=== PATIENT | male | born 1960 | race Caucasian/White ===

== ENCOUNTER 2019-03-10 20:08 | Inpatient (IN) ==
[2019-03-10] MEDS ORDERED: Isovue-370 500 ML BOTTLE IVP ONE (20:30)
[2019-03-10] MEDS ORDERED: 0.9 % Sodium Chloride 1,000 ML IVC ONE (20:31)
[2019-03-10] MEDS ORDERED: *HR* HYDROmorphone (PF) 1 MG/ML SYRINGE IVP ONE (20:31)
--- NOTE | 2019-03-10 20:32 | Emergency Department Note ---
Disposition Clinical Impression: Choledocholithiasis, Cholecystitis Disposition: Admitted As Inpatient Condition: Good Time of Disposition: 23:50 General Adult HPI - General Stated complaint: ABD pain Time Seen by Provider: 03/10/19 20:10 Nursing Notes Reviewed: Yes Vital Signs Reviewed: Yes - History of Present Illness HPI Narrative: 58-year-old male presents emergency department with concern for right upper quadrant abdominal pain as well as right lower quadrant abdominal pain. Patient is brought in by EMS reported as blood pressures were low on the lower side but still within normal limits. Patient reports that he has had some chills and sweatiness. Reported that he had elevated glucose per EMS in the high 400s. Patient reports that he is taking his insulin as prescribed. He denies chest pain, pressure, tightness, he does report sweatiness as well as chills, but no fever, no cough, no sputum production, no abdominal pain, he did have an episode of vomiting. - Related Data Home Medications Medication Instructions Recorded Confirmed Aspirin [Adult Low Dose Aspirin EC] 81 mg PO DAILY 10/26/15 01/23/18 Metoprolol [Lopressor] 12.5 mg PO BID 10/26/15 01/23/18 Nitroglycerin [Nitrostat] 1 tab SL PRN PRN 10/26/15 01/23/18 Albuterol Neb [AccuNeb] 3 ml IH Q8H 12/29/15 01/23/18 Lisinopril [Zestril] 10 mg PO DAILY 12/29/15 01/23/18 Albuterol Sulfate [Ventolin Hfa] 18 gm IH Q4H PRN 01/23/18 01/23/18 BuPROPion XL (24 HR) [Wellbutrin 300 mg PO DAILY 01/23/18 01/23/18 XL] Fluticasone/Vilanterol [Breo 1 each IH DAILY 01/23/18 01/23/18 Ellipta 200-25 Mcg INH] Mometasone/Formoterol [Dulera 200 13 gm IH PRN PRN 01/23/18 01/23/18 Mcg/5 Mcg Inhaler] Montelukast [Singulair] 10 mg PO HS 01/23/18 01/23/18 Pantoprazole Sodium [Protonix] 40 mg PO DAILY 01/23/18 01/23/18 Umeclidinium [place] [Incruse 62.5 mcg IH DAILY 01/23/18 01/23/18 Ellipta] hydroCHLOROthiazide 25 mg PO DAILY 01/23/18 01/23/18 [Hydrochlorothiazide] Previous Rx's Medication Instructions Recorded Ondansetron ODT [Zofran ODT] 4 mg SL Q6HR PRN #10 tab.rapdis 03/09/19 OxyCODONE/APAP 5/325 [Percocet 1 each PO Q6HR PRN 2 Days #8 tablet 03/09/19 5/325 MG] Allergies Allergy/AdvReac Type Severity Reaction Status Date / Time No Known Allergies Allergy Verified 01/23/18 13:47 All systems ED: reviewed and negative except as stated. Review of Systems: As Per HPI Constitutional: Denies: fever Cardiovascular: Denies: chest pain Respiratory: Denies: cough, dyspnea Gastrointestinal: Reports: nausea, vomiting. Denies: abdominal pain Genitourinary: Denies: dysuria Past Medical History - Past Medical History Attestation: Yes The following information was validated with the patient. Medical history: Reports: COPD, hyperlipidemia, hypertension Surgical history: Reports: other Psychiatric history: Reports: no psych history - Social History Smoking Status: Current every day smoker Smokeless Tobacco Status: No Alcohol use: Reports: none Drug use: Reports: none Physical Exam - General Limitations: no limitations General appearance: alert, other (Patient appears sweaty) - Head Head exam: normocephalic - Eye Eye exam: Present: EOMI - ENT ENT exam: mucous membranes dry - Neck Neck exam: Present: trachea midline - Chest Chest inspection: Present: symmetric chest wall rise - Respiratory Respiratory exam: Present: normal lung sounds bilaterally. Absent: respiratory distress, accessory muscle use - Cardiovascular Cardiovascular exam: Present: normal rhythm, tachycardia, normal heart sounds - Abdominal Exam Abdominal exam: Present: soft, Non-Tender. Absent: distention, guarding, rebound, rigidity - Extremities Exam Extremities exam: Present: normal capillary refill - Back Exam Back exam: Present: full ROM - Neurological Exam Neurological exam: Present: alert, oriented X3 - Psychiatric Psychiatric exam: Present: normal affect, normal mood - Skin Skin exam: Present: warm, dry, intact, normal color. Absent: rash Course Vital Signs Temperature 98.5 F 03/10/19 20:29 Pulse Rate 87 03/10/19 20:29 Respiratory Rate 18 03/10/19 20:29 Blood Pressure 99/71 03/10/19 20:29 O2 Sat by Pulse Oximetry 97 03/10/19 20:29 Temperature 97.9 F 03/11/19 00:33 Pulse Rate 100 03/11/19 00:33 Respiratory Rate 20 03/11/19 00:33 Blood Pressure 118/83 03/11/19 00:33 O2 Sat by Pulse Oximetry 94 03/11/19 00:33 Oxygen Delivery Oxygen Delivery Room Air Medical Decision Making - MDM Narrative Medical decision making narrative: 58-year-old male with history of gallstones presents emergency department with right upper and right lower quadrant abdominal pain. Patient currently has blood pressures are soft. Given fluids. Obtain CT scan abdomen pelvis which revealed evidence of possible cholecystitis. Spoke with Dr. Barrera stated that there could be some concern for possible choledocholithiasis with dilated common bile duct on yesterday's gallbladder ultrasound. Patient was given Zosyn. Spoke with Dr. Sharma who spoke with our GI coverage. He requested MRCP. Patient intermittently stable in any distress time of admission. Chest X-Ray 03/10/19 20:23 IMPRESSION: Stable chest x-ray status post left upper lobectomy. No acute disease. D/ / Jay Resendez MD / Jay Resendez MD Interpreting Provider: Jay Resendez MD Abdomen/Pelvis CT 03/10/19 20:30 IMPRESSION: 1. Evidence for cholesterol gallstones with inflammatory changes surrounding the gallbladder suggesting acute cholecystitis. 2. Airspace opacification in the right lower lobe could represent atelectatic changes or pneumonia 3. Colonic diverticulosis without evidence for diverticulitis 4. No obstructive uropathy D/ / Jerardo Dickerson MD / Jerardo Dickerson MD Interpreting Provider: Jerardo Dickerson MD - Lab Data Result diagrams: 03/10/19 20:43 03/10/19 20:43 Lab Results 03/10/19 03/10/19 03/10/19 Range/Units 20:43 20:43 20:43 WBC 21.1 H D (4.3-11.1) K/mcL RBC 5.70 H (4.19-5.50) M/mcL Hgb 16.2 (12.9-16.9) g/dL Hct 50.0 (37.5-50.1) % MCV 87.7 (83.0-100.0) fL MCH 28.4 (28.0-33.3) pg MCHC 32.4 (31.6-35.5) g/dL RDW 14.5 (11.5-14.5) % Plt Count 236 (140-400) K/mcL MPV 11.1 (9.4-12.4) fL Immature Gran % 1.0 (0-4) % Seg Neutrophils % 86.5 % Lymphocytes % 4.9 % Monocytes % 7.4 % Eosinophils % 0.0 % Basophils % 0.2 % Neutrophils # 18.3 H (1.6-8.9) K/mcL Lymphocytes # 1.0 (0.6-4.6) K/mcL Monocytes # 1.6 H (0.0-1.3) K/mcL Eosinophils # 0.0 (0.0-0.6) K/mcL Basophils # 0.0 (0.0-0.2) K/mcL PT (9.4-12.1) Seconds INR Sodium 135 L (136-145) mEq/L Potassium 3.9 (3.5-5.1) mEq/L Chloride 100 (98-107) mEq/L Carbon Dioxide 25 (23-29) mEq/L BUN 13 (6-20) mg/dL Creatinine 1.17 (0.70-1.30) mg/dL Est GFR ( Amer) > 60 (> 60) Est GFR (Non-Af Amer) > 60 (> 60) BUN/Creatinine Ratio 11 (6-26) Glucose 141 H (70-105) mg/dL Calculated Osmolality 282 (280-300) Lactic Acid (0.5-2.2) mmol/L Calcium 9.0 (8.6-10.3) mg/dL Total Bilirubin 1.6 H (0.3-1.0) mg/dL AST 14 (13-39) Units/L ALT 16 (7-52) Units/L Alkaline Phosphatase 89 (34-104) Units/L Troponin I < 0.03 (< 0.04) ng/mL B-Natriuretic Peptide 166 H (Less than 100) pg/mL Serum Total Protein 6.7 (6.4-8.9) g/dL Albumin 3.8 (3.5-5.7) g/dL Globulin 2.9 (2.4-3.5) g/dL Albumin/Globulin Ratio 1.3 (1.1-2.2) Lipase 13 (11-82) Units/L Urine Color (Yellow) Urine Clarity (Clear) Urine pH (5.0-8.0) pH Units Ur Specific [place] (1.010-1.025) Urine Protein (Neg-Trace) mg/dL Urine Glucose (UA) (Normal) mg/dL Urine Ketones (Negative) mg/dL Urine Blood (Negative) Urine Nitrite (Negative) Urine Bilirubin (Negative) Urine Urobilinogen (Normal) mg/dL Ur Leukocyte Esterase (Negative) Urine Microscopic RBC (0-3) per hpf Urine Microscopic WBC (0-3) per hpf Ur Squamous Epith Cells (None-Few) per lpf Urine Bacteria (None-Few) per hpf Hyaline Casts (None-Few) per lpf Ur Culture Indicated? (NO) 03/10/19 03/10/19 03/10/19 Range/Units 20:43 20:43 20:57 WBC (4.3-11.1) K/mcL RBC (4.19-5.50) M/mcL Hgb (12.9-16.9) g/dL Hct (37.5-50.1) % MCV (83.0-100.0) fL MCH (28.0-33.3) pg MCHC (31.6-35.5) g/dL RDW (11.5-14.5) % Plt Count (140-400) K/mcL MPV (9.4-12.4) fL Immature Gran % (0-4) % Seg Neutrophils % % Lymphocytes % % Monocytes % % Eosinophils % % Basophils % % Neutrophils # (1.6-8.9) K/mcL Lymphocytes # (0.6-4.6) K/mcL Monocytes # (0.0-1.3) K/mcL Eosinophils # (0.0-0.6) K/mcL Basophils # (0.0-0.2) K/mcL PT 14.4 H (9.4-12.1) Seconds INR 1.3 Sodium (136-145) mEq/L Potassium (3.5-5.1) mEq/L Chloride (98-107) mEq/L Carbon Dioxide (23-29) mEq/L BUN (6-20) mg/dL Creatinine (0.70-1.30) mg/dL Est GFR ( Amer) (> 60) Est GFR (Non-Af Amer) (> 60) BUN/Creatinine Ratio (6-26) Glucose (70-105) mg/dL Calculated Osmolality (280-300) Lactic Acid 2.1 (0.5-2.2) mmol/L Calcium (8.6-10.3) mg/dL Total Bilirubin (0.3-1.0) mg/dL AST (13-39) Units/L ALT (7-52) Units/L Alkaline Phosphatase (34-104) Units/L Troponin I (< 0.04) ng/mL B-Natriuretic Peptide (Less than 100) pg/mL Serum Total Protein (6.4-8.9) g/dL Albumin (3.5-5.7) g/dL Globulin (2.4-3.5) g/dL Albumin/Globulin Ratio (1.1-2.2) Lipase (11-82) Units/L Urine Color [place] A (Yellow) Urine Clarity Clear (Clear) Urine pH 5.0 (5.0-8.0) pH Units Ur Specific [place] > 1.030 H (1.010-1.025) Urine Protein 100 H (Neg-Trace) mg/dL Urine Glucose (UA) Normal (Normal) mg/dL Urine Ketones Trace H (Negative) mg/dL Urine Blood Negative (Negative) Urine Nitrite Negative (Negative) Urine Bilirubin Small H (Negative) Urine Urobilinogen Normal (Normal) mg/dL Ur Leukocyte Esterase Small H (Negative) Urine Microscopic RBC 5-15 H (0-3) per hpf Urine Microscopic WBC 5-15 H (0-3) per hpf Ur Squamous Epith Cells Many H (None-Few) per lpf Urine Bacteria None Seen (None-Few) per hpf Hyaline Casts Few (None-Few) per lpf Ur Culture Indicated? YES A (NO) - EKG Data EKG #1 EKG attestation: Yes I reviewed and interpreted this EKG. EKG results narrative: 20:20 Heart rate 85 bpm, NE interval 130 ms, QRS duration 87, QT 351 ms, normal axis. Sinus rhythm with no ischemic ST changes.
[2019-03-10] MEDS ORDERED: Ondansetron 4 MG/2 ML VIAL IVP ONE (20:33)
[2019-03-10 20:59] LABS: Basophils % 0.2 %; Hemoglobin 16.2 g/dL (12.9-16.9); Lymphocytes % 4.9 %; Mean Corpuscular HGB Conc 32.4 g/dL (31.6-35.5); Mean Corpuscular Hemoglobin 28.4 pg (28.0-33.3); Mean Corpuscular Volume 87.7 fL (83.0-100.0); Mean Platelet Volume 11.1 fL (9.4-12.4); Monocytes # 1.6 K/mcL (0.0-1.3); Monocytes % 7.4 %; Platelet Count 236 K/mcL (140-400); Red Cell Distribution Width 14.5 % (11.5-14.5); Segmented Neutrophils % 86.5 %
[2019-03-10 21:00] LABS: Neutrophils # 18.3 K/mcL (1.6-8.9); White Blood Count 21.1 K/mcL (4.3-11.1)
[2019-03-10 21:25] LABS: Alanine Aminotransferase 16 Units/L (7-52); Albumin 3.8 g/dL (3.5-5.7); Albumin/Globulin Ratio 1.3 (1.1-2.2); Alkaline Phosphatase 89 Units/L (34-104); Aspartate Amino Transferase 14 Units/L (13-39); BUN/Creatinine Ratio 11 (6-26); Bilirubin,Total 1.6 mg/dL (0.3-1.0); Blood Urea Nitrogen 13 mg/dL (6-20); Carbon Dioxide 25 mEq/L (23-29); Chloride 100 mEq/L (98-107); Globulin 2.9 g/dL (2.4-3.5); Glucose 141 mg/dL (70-105); Lipase 13 Units/L (11-82); Osmolality,Calculated 282 (280-300); Potassium 3.9 mEq/L (3.5-5.1); Sodium 135 mEq/L (136-145); Total Protein 6.7 g/dL (6.4-8.9); Troponin I < 0.03 ng/mL (< 0.04); eGFR For African Americans > 60 (> 60); eGFR For Non-African Americans > 60 (> 60)
[2019-03-10 21:30] LABS: Bilirubin,Urine Small (Negative); Blood,Urine Negative (Negative); Clarity,Urine Clear (Clear); Color,Urine Orange (Yellow); Glucose,Urine (UA) Normal (Normal); Ketones,Urine Trace mg/dL (Negative); Leukocyte Esterase,Urine Small (Negative); Nitrite,Urine Negative (Negative); Protein,Urine 100 mg/dL (Neg-Trace); Specific Gravity,Urine > 1.030 (1.010-1.025); Urobilinogen,Urine Normal (Normal)
[2019-03-10 21:34] LABS: Bacteria,Urine None Seen per hpf (None-Few); Squamous Epithelial Cell,Urine Many per lpf (None-Few)
[2019-03-10] MEDS ORDERED: Piperacillin/Tazobactam 3.375 GM in Water for inj. (sterile) 20 ML IVP ONE (21:40)
[2019-03-10 21:56] LABS: Hyaline Casts,Urine Few per lpf (None-Few)
--- NOTE | 2019-03-10 22:27 | Emergency Department Note ---
Disposition Clinical Impression: Choledocholithiasis Disposition: Admitted As Inpatient Condition: Good Referrals: Sonia Bradley MD [Primary Care Provider] - Forms: ED Satisfaction Letter, Work/School Release Time of Disposition: 22:27 General Adult HPI - General Chief complaint: ED General Medical Stated complaint: ABD pain Time Seen by Provider: 03/10/19 20:10 Source: patient Limitations: no limitations - History of Present Illness Pain Scale: 7 - Related Data Home Medications Medication Instructions Recorded Confirmed Aspirin [Adult Low Dose Aspirin EC] 81 mg PO DAILY 10/26/15 01/23/18 Metoprolol [Lopressor] 12.5 mg PO BID 10/26/15 01/23/18 Nitroglycerin [Nitrostat] 1 tab SL PRN PRN 10/26/15 01/23/18 Albuterol Neb [AccuNeb] 3 ml IH Q8H 12/29/15 01/23/18 Lisinopril [Zestril] 10 mg PO DAILY 12/29/15 01/23/18 Albuterol Sulfate [Ventolin Hfa] 18 gm IH Q4H PRN 01/23/18 01/23/18 BuPROPion XL (24 HR) [Wellbutrin 300 mg PO DAILY 01/23/18 01/23/18 XL] Fluticasone/Vilanterol [Breo 1 each IH DAILY 01/23/18 01/23/18 Ellipta 200-25 Mcg INH] Mometasone/Formoterol [Dulera 200 13 gm IH PRN PRN 01/23/18 01/23/18 Mcg/5 Mcg Inhaler] Montelukast [Singulair] 10 mg PO HS 01/23/18 01/23/18 Pantoprazole Sodium [Protonix] 40 mg PO DAILY 01/23/18 01/23/18 Umeclidinium [place] [Incruse 62.5 mcg IH DAILY 01/23/18 01/23/18 Ellipta] hydroCHLOROthiazide 25 mg PO DAILY 01/23/18 01/23/18 [Hydrochlorothiazide] Previous Rx's Medication Instructions Recorded Ondansetron ODT [Zofran ODT] 4 mg SL Q6HR PRN #10 tab.rapdis 03/09/19 OxyCODONE/APAP 5/325 [Percocet 1 each PO Q6HR PRN 2 Days #8 tablet 03/09/19 5/325 MG] Allergies Allergy/AdvReac Type Severity Reaction Status Date / Time No Known Allergies Allergy Verified 01/23/18 13:47 Constitutional: Denies: fever Cardiovascular: Denies: chest pain Respiratory: Denies: cough, dyspnea Gastrointestinal: Reports: nausea, vomiting. Denies: abdominal pain Genitourinary: Denies: dysuria Past Medical History - Past Medical History Medical history: Reports: COPD, hyperlipidemia, hypertension Surgical history: Reports: other Psychiatric history: Reports: no psych history - Social History Smoking Status: Current every day smoker Smokeless Tobacco Status: No Alcohol use: Reports: none Drug use: Reports: none Physical Exam - General Limitations: no limitations General appearance: alert, other (Patient appears sweaty) Course - Consultations Consultation #1: discussed case with Dr. Bruce melo suspects choledecolithiasis and he may need GI consult tomorrow morning for an ERCP. He does necessarily meet emergent surgical intervention at this time. If medicine cannot admit due to limited GI c overage tonight we will need to transfer for him to have a ERCP/MRCP done in the morning and if that study is otherwise negative then a consult to surgery may be more apporpiate. will pass by medicine Time: 22:27 Vital Signs Temperature 98.5 F 03/10/19 20:29 Pulse Rate 87 03/10/19 20:29 Respiratory Rate 18 03/10/19 20:29 Blood Pressure 99/71 03/10/19 20:29 O2 Sat by Pulse Oximetry 97 03/10/19 20:29 Temperature 98.5 F 03/10/19 20:29 Pulse Rate 99 03/10/19 22:17 Respiratory Rate 20 03/10/19 22:17 Blood Pressure 118/88 03/10/19 22:17 O2 Sat by Pulse Oximetry 98 03/10/19 22:17 Oxygen Delivery Oxygen Delivery Room Air Medical Decision Making - Lab Data Result diagrams: 03/10/19 20:43 03/10/19 20:43 Lab Results 03/10/19 03/10/19 03/10/19 Range/Units 20:43 20:43 20:43 WBC 21.1 H D (4.3-11.1) K/mcL RBC 5.70 H (4.19-5.50) M/mcL Hgb 16.2 (12.9-16.9) g/dL Hct 50.0 (37.5-50.1) % MCV 87.7 (83.0-100.0) fL MCH 28.4 (28.0-33.3) pg MCHC 32.4 (31.6-35.5) g/dL RDW 14.5 (11.5-14.5) % Plt Count 236 (140-400) K/mcL MPV 11.1 (9.4-12.4) fL Immature Gran % 1.0 (0-4) % Seg Neutrophils % 86.5 % Lymphocytes % 4.9 % Monocytes % 7.4 % Eosinophils % 0.0 % Basophils % 0.2 % Neutrophils # 18.3 H (1.6-8.9) K/mcL Lymphocytes # 1.0 (0.6-4.6) K/mcL Monocytes # 1.6 H (0.0-1.3) K/mcL Eosinophils # 0.0 (0.0-0.6) K/mcL Basophils # 0.0 (0.0-0.2) K/mcL Sodium 135 L (136-145) mEq/L Potassium 3.9 (3.5-5.1) mEq/L Chloride 100 (98-107) mEq/L Carbon Dioxide 25 (23-29) mEq/L BUN 13 (6-20) mg/dL Creatinine 1.17 (0.70-1.30) mg/dL Est GFR ( Amer) > 60 (> 60) Est GFR (Non-Af Amer) > 60 (> 60) BUN/Creatinine Ratio 11 (6-26) Glucose 141 H (70-105) mg/dL Calculated Osmolality 282 (280-300) Lactic Acid (0.5-2.2) mmol/L Calcium 9.0 (8.6-10.3) mg/dL Total Bilirubin 1.6 H (0.3-1.0) mg/dL AST 14 (13-39) Units/L ALT 16 (7-52) Units/L Alkaline Phosphatase 89 (34-104) Units/L Troponin I < 0.03 (< 0.04) ng/mL B-Natriuretic Peptide 166 H (Less than 100) pg/mL Serum Total Protein 6.7 (6.4-8.9) g/dL Albumin 3.8 (3.5-5.7) g/dL Globulin 2.9 (2.4-3.5) g/dL Albumin/Globulin Ratio 1.3 (1.1-2.2) Lipase 13 (11-82) Units/L Urine Color (Yellow) Urine Clarity (Clear) Urine pH (5.0-8.0) pH Units Ur Specific [place] (1.010-1.025) Urine Protein (Neg-Trace) mg/dL Urine Glucose (UA) (Normal) mg/dL Urine Ketones (Negative) mg/dL Urine Blood (Negative) Urine Nitrite (Negative) Urine Bilirubin (Negative) Urine Urobilinogen (Normal) mg/dL Ur Leukocyte Esterase (Negative) Urine Microscopic RBC (0-3) per hpf Urine Microscopic WBC (0-3) per hpf Ur Squamous Epith Cells (None-Few) per lpf Urine Bacteria (None-Few) per hpf Hyaline Casts (None-Few) per lpf Ur Culture Indicated? (NO) 03/10/19 03/10/19 Range/Units 20:43 20:57 WBC (4.3-11.1) K/mcL RBC (4.19-5.50) M/mcL Hgb (12.9-16.9) g/dL Hct (37.5-50.1) % MCV (83.0-100.0) fL MCH (28.0-33.3) pg MCHC (31.6-35.5) g/dL RDW (11.5-14.5) % Plt Count (140-400) K/mcL MPV (9.4-12.4) fL Immature Gran % (0-4) % Seg Neutrophils % % Lymphocytes % % Monocytes % % Eosinophils % % Basophils % % Neutrophils # (1.6-8.9) K/mcL Lymphocytes # (0.6-4.6) K/mcL Monocytes # (0.0-1.3) K/mcL Eosinophils # (0.0-0.6) K/mcL Basophils # (0.0-0.2) K/mcL Sodium (136-145) mEq/L Potassium (3.5-5.1) mEq/L Chloride (98-107) mEq/L Carbon Dioxide (23-29) mEq/L BUN (6-20) mg/dL Creatinine (0.70-1.30) mg/dL Est GFR ( Amer) (> 60) Est GFR (Non-Af Amer) (> 60) BUN/Creatinine Ratio (6-26) Glucose (70-105) mg/dL Calculated Osmolality (280-300) Lactic Acid 2.1 (0.5-2.2) mmol/L Calcium (8.6-10.3) mg/dL Total Bilirubin (0.3-1.0) mg/dL AST (13-39) Units/L ALT (7-52) Units/L Alkaline Phosphatase (34-104) Units/L Troponin I (< 0.04) ng/mL B-Natriuretic Peptide (Less than 100) pg/mL Serum Total Protein (6.4-8.9) g/dL Albumin (3.5-5.7) g/dL Globulin (2.4-3.5) g/dL Albumin/Globulin Ratio (1.1-2.2) Lipase (11-82) Units/L Urine Color [place] A (Yellow) Urine Clarity Clear (Clear) Urine pH 5.0 (5.0-8.0) pH Units Ur Specific [place] > 1.030 H (1.010-1.025) Urine Protein 100 H (Neg-Trace) mg/dL Urine Glucose (UA) Normal (Normal) mg/dL Urine Ketones Trace H (Negative) mg/dL Urine Blood Negative (Negative) Urine Nitrite Negative (Negative) Urine Bilirubin Small H (Negative) Urine Urobilinogen Normal (Normal) mg/dL Ur Leukocyte Esterase Small H (Negative) Urine Microscopic RBC 5-15 H (0-3) per hpf Urine Microscopic WBC 5-15 H (0-3) per hpf Ur Squamous Epith Cells Many H (None-Few) per lpf Urine Bacteria None Seen (None-Few) per hpf Hyaline Casts Few (None-Few) per lpf Ur Culture Indicated? YES A (NO) Attestation Statement - Attestation Attestation: I reviewed the residents documentation and agree with the residents assessment and plan of care. I have personally had face to face time with the patient. (Brief History, Brief Exam, and MDM) I personally supervised and was present for the gordon/critical portions of the following procedures completed by the resident: (add procedures performed here). 58 year old male presents ot the ED with RUQ pain and states that it has been worsening it appears that he has an elevated WBCof 21 without lactic acidosis and has a dialted common bile duct of 9mm and stones from a previous RUQ US just yesterday. We will discuss case with surgery after ABCT with IV contrst
[2019-03-10 22:47] LABS: INR 1.3; Prothrombin Time 14.4 Seconds (9.4-12.1)
[2019-03-11] MEDS ORDERED: Acetaminophen 325 MG TABLET PO PRN (01:11)
[2019-03-11] MEDS ORDERED: Albuterol 2.5 MG/3 ML NEBULIZER IH PRN ×2 (01:11→18:19)
[2019-03-11] MEDS ORDERED: Naloxone 0.4 MG/ML INJ IVP PRN ×2 (01:11→18:19)
[2019-03-11] MEDS ORDERED: Ondansetron 4 MG/2 ML VIAL IVP PRN ×2 (01:11→18:19)
[2019-03-11] MEDS ORDERED: *HR* HYDROcodone/Acet 5/325 mg TABLET PO PRN (01:11)
[2019-03-11] MEDS ORDERED: 0.9 % Sodium Chloride w KCl 20 MEQ/1,000 ML MLS IVC SCH ×2 (01:15→18:19)
[2019-03-11] MEDS ORDERED: MetroNIDAZOLE 500 MG/100 ML 500 MG/100 ML BAG IVPB SCH (01:17)
[2019-03-11] MEDS ORDERED: *HR* FentaNYL (PF) 100 MCG/2 ML VIAL IVP PRN ×2 (01:20→18:19)
[2019-03-11] MEDS: 0.9 % Sodium Chloride 1,000 ML IVC SCH ×3 (01:47→03:53)
[2019-03-11 03:19] LABS: Basophils % 0.2 %; Hematocrit 48.3 % (37.5-50.1); Hemoglobin 15.3 g/dL (12.9-16.9); Lymphocytes # 1.1 K/mcL (0.6-4.6); Lymphocytes % 5.5 %; Mean Corpuscular HGB Conc 31.7 g/dL (31.6-35.5); Mean Corpuscular Hemoglobin 28.2 pg (28.0-33.3); Mean Corpuscular Volume 89.1 fL (83.0-100.0); Mean Platelet Volume 11.2 fL (9.4-12.4); Monocytes # 1.2 K/mcL (0.0-1.3); Monocytes % 6.1 %; Neutrophils # 17.6 K/mcL (1.6-8.9); Platelet Count 193 K/mcL (140-400); Red Blood Count 5.42 M/mcL (4.19-5.50); Red Cell Distribution Width 14.7 % (11.5-14.5); Segmented Neutrophils % 87.2 %; White Blood Count 20.2 K/mcL (4.3-11.1)
[2019-03-11 03:27] LABS: INR 1.4; Prothrombin Time 15.9 Seconds (9.4-12.1)
[2019-03-11 03:30] LABS: Activated Partial Thrombo Time 34.6 Seconds (26.0-36.0)
[2019-03-11 03:39] LABS: Alanine Aminotransferase 14 Units/L (7-52); Albumin 3.5 g/dL (3.5-5.7); Albumin/Globulin Ratio 1.3 (1.1-2.2); Alkaline Phosphatase 77 Units/L (34-104); Amylase 18 Units/L (29-103); Aspartate Amino Transferase 14 Units/L (13-39); BUN/Creatinine Ratio 12 (6-26); Bilirubin,Direct 0.4 mg/dL (0.0-0.2); Bilirubin,Indirect 0.9 mg/dL (0.0-1.2); Bilirubin,Total 1.3 mg/dL (0.3-1.0); Blood Urea Nitrogen 12 mg/dL (6-20); Calcium 8.4 mg/dL (8.6-10.3); Carbon Dioxide 27 mEq/L (23-29); Chloride 100 mEq/L (98-107); Cholesterol 133 mg/dL (< 200); Globulin 2.7 g/dL (2.4-3.5); Glucose 114 mg/dL (70-105); HDL Cholesterol 44 mg/dL (40-59); LDL Cholesterol,Calculated 68 mg/dL (0-99); Lipase 8 Units/L (11-82); Magnesium 1.6 mg/dL (1.6-2.6); Osmolality,Calculated 281 (280-300); Potassium 3.7 mEq/L (3.5-5.1); Sodium 135 mEq/L (136-145); Total Protein 6.2 g/dL (6.4-8.9); Triglycerides 107 mg/dL (< 150); eGFR For African Americans > 60 (> 60); eGFR For Non-African Americans > 60 (> 60)
[2019-03-11] MEDS: Ipratropium/Albuterol Neb 3 ML IH SCH ×3 (04:05→15:36)
--- NOTE | 2019-03-11 04:33 | Internal Med History&Physical ---
Date of Encounter: 03/11/19 Time of Encounter: 00:30 Internal Medicine - H&P: HPI Chief complaint: abdominal pain Admitted From: Emergency Dept Plans for Post Hospital Care: Home History of present illness: Mr. Agarwal is a 58 year old male who presents to the ER tonight with right upper quadrant abdominal pain, fevers, chills, nausea, and vomiting. Symptoms are identical to those of yesterday when he presented to ER with same symptoms. Ultrasound was performed yesterday which revealed minimal common bile duct di latation and gallbladder sludge. He was sent home with proper follow-up. He returned tonight with worsening symptoms. CT scan was performed which was concerning for cholecystitis. Dr. Barrera was consulted from the ER and will see patient and likely proceed with surgery. However, he recommended GI consult for possible ERCP. Patient was then admitted to hospitalist service. Upon my assessment of the patient, patient confirms above history. He has had gallbladder symptoms off and on for a few years. However, over the last few weeks he has had worsening GI intolerance. Then 2 days ago he developed acute right upper quadrant abdominal pain, fevers, chills, nausea, and vomiting. I reviewed his labs, imaging studies, and his physical exam. I then talked with Dr. Carrasquillo, and he had I have a low suspicion he needs ERCP given his normal LFTs. Nonetheless, we will proceed with MRCP this morning and then possible ERCP if necessary. Past Med Surg Social Fam HX - Past Medical History Attestation: Yes The following information was validated with the patient. Source: patient, old records reviewed Medical history: COPD, hyperlipidemia, hypertension Additional medical history: SMOKER, CHRONIC BRONCITIS Psychiatric history: no psych history - Past Surgical History Surgical History: other Additional surgical history: hernia repain, L lobectomy, cardiac cath - Social History Smoking Status: Current every day smoker Smokeless Tobacco Status: No Alcohol use: none Drug use: none Current living situation: Home, With Family Activity Level: Independent ambulation Recent Out of Country Travel Within the Last 8 Weeks: No - Family History Mother Adopted: No Family Member Ethnicity: Non- Living Status: Hx Family Cardiac Disorders: Yes Hx Family Respiratory Disorders: Yes (Emyphesema) Hx Family Cancer: No Hx Family GI Disorders: Yes (babatunde) Hx Family Endocrine Disorder: No Hx Family Neuromuscular Disorders: No Hx Family Neurologic Disorders: No Hx Family HEENT Disorders: No Hx Family Autoimmune Disorders: No Internal Medicine - H&P: Meds Aspirin [Adult Low Dose Aspirin EC] 81 mg PO DAILY 10/26/15 [History] Metoprolol [Lopressor] 12.5 mg PO BID 10/26/15 [History] Nitroglycerin [Nitrostat] 1 tab SL PRN PRN 10/26/15 [History] Albuterol Neb [AccuNeb] 3 ml IH Q8H 12/29/15 [History] Lisinopril [Zestril] 10 mg PO DAILY 12/29/15 [History] Albuterol Sulfate [Ventolin Hfa] 18 gm IH Q4H PRN 01/23/18 [History] BuPROPion XL (24 HR) [Wellbutrin XL] 300 mg PO DAILY 01/23/18 [History] Fluticasone/Vilanterol [Breo Ellipta 200-25 Mcg INH] 1 each IH DAILY 01/23/18 [History] Mometasone/Formoterol [Dulera 200 Mcg/5 Mcg Inhaler] 13 gm IH PRN PRN 01/23/18 [History] Montelukast [Singulair] 10 mg PO HS 01/23/18 [History] Pantoprazole Sodium [Protonix] 40 mg PO DAILY 01/23/18 [History] Umeclidinium [place] [Incruse Ellipta] 62.5 mcg IH DAILY 01/23/18 [History] hydroCHLOROthiazide [Hydrochlorothiazide] 25 mg PO DAILY 01/23/18 [History] Ondansetron ODT [Zofran ODT] 4 mg SL Q6HR PRN #10 tab.rapdis 03/09/19 [Rx] OxyCODONE/APAP 5/325 [Percocet 5/325 MG] 1 each PO Q6HR PRN 2 Days #8 tablet 03/09/19 [Rx] Allergy/AdvReac Type Severity Reaction Status Date / Time No Known Allergies Allergy Verified 01/23/18 13:47 - Constitutional Constitutional: chills, fever(s), no night sweats - EENT Eyes: no blurry vision, no change in vision Ears: no ear pain, no tinnitus Nose, mouth and throat: no nasal congestion, no sinus pressure, no sore throat - Cardiovascular Cardiovascular ROS IM: no chest pain, no dyspnea, no dyspnea on exertion, no palpitations - Respiratory Respiratory: no cough, no chest congestion, no excessive phlegm production - Gastrointestinal Gastrointestinal: abdominal pain, nausea, vomiting, no diarrhea, no hematemesis, no hematochezia, no melena - Genitourinary Genitourinary ROS male: no dysuria, no flank pain, no hematuria - Musculoskeletal Musculoskeletal ROS IM: arthralgias, no back pain - Integumentary Integumentary IM: no rash, no jaundice - Neurological Neurological ROS: no dizziness, no focal weakness, no frequent falls, no headache(s) - Psychiatric Psychiatric: no anxiety, no depression - Endocrine Endocrine IM: no polydipsia, no polyphagia, no polyuria - Allergic/Immunologic Allergic/Immunologic: GI upset with certain foods - Constitutional Vitals: Temp Pulse Resp BP Pulse Ox 97.9 F 100 20 118/83 95 03/11/19 00:33 03/11/19 00:33 03/11/19 04:05 03/11/19 00:33 03/11/19 04:05 General appearance: Present: cooperative, mild distress, A&O X 3, pleasant, answers questions appropriately Exam: minimal distress at this time - Head Head exam: Present: normal inspection - Eye Eye exam: Present: EOMI, PERRL. Absent: scleral icterus Pupils: Present: normal accommodation - ENT ENT exam: Present: mucous membranes dry, normal exam, normal oropharynx - Neck Neck exam general surgery: Present: full ROM, normal inspection, supple, trachea midline. Absent: tenderness, nuchal rigidity, thyromegaly - Respiratory Respiratory exam: Present: CTAB. Absent: chest wall tenderness, rales, rhonchi, wheezes - Cardiovascular Cardiovascular exam: Present: RRR, +S1, +S2. Absent: diastolic murmur, systolic murmur - GI/Abdominal GI/Abdominal exam: Present: guarding, hypoactive bowel sounds, soft, tenderness, no peritoneal signs. Absent: hepatomegaly, rebound, splenomegaly Additional comments: RUQ pain and guarding - Extremities Exam Extremities exam: Present: full ROM, normal capillary refill, warm, radial pulses palpable and symmetrical. Absent: calf tenderness, pedal edema, tenderness - Back Exam Back exam: Absent: CVA tenderness (L), CVA tenderness (R) - Neurological Exam Neurological exam: Present: alert, CN II-XII intact, oriented X3, no focal deficits, strengths equal and symetr throughout. Absent: motor sensory deficit - Psychiatric Psychiatric exam: Present: normal affect, normal mood - Skin Skin exam: Present: dry, intact, warm Internal Med - H&P Results - Labs CBC & Chem 7: 03/11/19 02:54 03/11/19 02:54 Labs: Short CBC 03/10/19 03/11/19 Range/Units 20:43 02:54 WBC 21.1 H D 20.2 H (4.3-11.1) K/mcL Hgb 16.2 15.3 (12.9-16.9) g/dL Hct 50.0 48.3 (37.5-50.1) % Plt Count 236 193 (140-400) K/mcL Neutrophils # 18.3 H 17.6 H (1.6-8.9) K/mcL BMP 03/10/19 03/11/19 20:43 02:54 Sodium 135 L 135 L Potassium 3.9 3.7 Chloride 100 100 Carbon Dioxide 25 27 BUN 13 12 Creatinine 1.17 1.00 Glucose 141 H 114 H Calcium 9.0 8.4 L Cardiac Enzymes 03/10/19 Range/Units 20:43 Troponin I < 0.03 (< 0.04) ng/mL Liver Function 03/10/19 03/11/19 Range/Units 20:43 02:54 Total Bilirubin 1.6 H 1.3 H (0.3-1.0) mg/dL Direct Bilirubin 0.4 H (0.0-0.2) mg/dL AST 14 14 (13-39) Units/L ALT 16 14 (7-52) Units/L Alkaline Phosphatase 89 77 (34-104) Units/L Albumin 3.8 3.5 (3.5-5.7) g/dL Urine 03/10/19 Range/Units 20:57 Urine Color [place] A (Yellow) Urine Clarity Clear (Clear) Urine pH 5.0 (5.0-8.0) pH Units Ur Specific [place] > 1.030 H (1.010-1.025) Urine Protein 100 H (Neg-Trace) mg/dL Urine Glucose (UA) Normal (Normal) mg/dL - Impressions ITS Impressions Chest X-Ray 03/10/19 20:23 IMPRESSION: Stable chest x-ray status post left upper lobectomy. No acute disease. D/ / Jay Resendez MD / Jay Resendez MD Interpreting Provider: Jay eRsendez MD Abdomen/Pelvis CT 03/10/19 20:30 IMPRESSION: 1. Evidence for cholesterol gallstones with inflammatory changes surrounding the gallbladder suggesting acute cholecystitis. 2. Airspace opacification in the right lower lobe could represent atelectatic changes or pneumonia 3. Colonic diverticulosis without evidence for diverticulitis 4. No obstructive uropathy D/ / Jerardo Dickerson MD / Jerardo Dickerson MD Interpreting Provider: Jerardo Dickerson MD - Diagnostic Studies Chest x-ray Status: image reviewed by me (negative) CT scan - abdomen Status: image reviewed by me (gallstones and cholecystitis) - Assessment and Plan (1) Cholecystitis Current Visit: Yes Status: Acute Assessment and plan: 1. Keep NPO. 2. IVF and antibiotics. 3. MRCP this morning followed by ERCP if necessary. 4. Consult Dr. Carrasquillo and Dr. Barrera. 5. Pain control and anti-emetics as necessary. (2) Sepsis Current Visit: Yes Status: Acute Assessment and plan: 1. Likely due to cholecystits. 2. Hemodynamically stable. 3. Will trend lactates, bolus fluids and order MIV. Note, patient had 1 liter bolus in ER. 4. Blood cultures obtained in ER. 5. Monitor on telemetry and clinically. Qualifiers: Sepsis type: sepsis due to unspecified organism Qualified Code(s): A41.9 - Sepsis, unspecified organism (3) COPD (chronic obstructive pulmonary disease) Current Visit: Yes Status: Chronic Assessment and plan: 1. NO acute exacerbation. 2. Continue home meds as appropriate. 3. Oxygen and BiPap at night per home use. Qualifiers: COPD type: emphysema Emphysema type: panlobular Qualified Code(s): J43.1 - Panlobular emphysema (4) DVT prophylaxis Current Visit: Yes Status: Acute Assessment and plan: 1. Heparin SQ.
[2019-03-11] MEDS: *HR* Heparin 5,000 UNIT/ML VIAL SQ SCH ×3 (04:49→21:08)
[2019-03-11] MEDS ORDERED: Pantoprazole 40 MG VIAL IVP SCH (06:00)
--- NOTE | 2019-03-11 07:56 | Emergency Department Note ---
Disposition Clinical Impression: Choledocholithiasis, Cholecystitis Disposition: Admitted As Inpatient Condition: Good Time of Disposition: 08:08 Psych HPI - General Chief Complaint: ED General Medical Stated Complaint: ABD pain Time Seen by Provider: 03/10/19 20:10 Source: patient - Related Data Home Medications Medication Instructions Recorded Confirmed Aspirin [Adult Low Dose Aspirin EC] 81 mg PO DAILY 10/26/15 01/23/18 Metoprolol [Lopressor] 12.5 mg PO BID 10/26/15 01/23/18 Nitroglycerin [Nitrostat] 1 tab SL PRN PRN 10/26/15 01/23/18 Albuterol Neb [AccuNeb] 3 ml IH Q8H 12/29/15 01/23/18 Lisinopril [Zestril] 10 mg PO DAILY 12/29/15 01/23/18 Albuterol Sulfate [Ventolin Hfa] 18 gm IH Q4H PRN 01/23/18 01/23/18 BuPROPion XL (24 HR) [Wellbutrin 300 mg PO DAILY 01/23/18 01/23/18 XL] Fluticasone/Vilanterol [Breo 1 each IH DAILY 01/23/18 01/23/18 Ellipta 200-25 Mcg INH] Mometasone/Formoterol [Dulera 200 13 gm IH PRN PRN 01/23/18 01/23/18 Mcg/5 Mcg Inhaler] Montelukast [Singulair] 10 mg PO HS 01/23/18 01/23/18 Pantoprazole Sodium [Protonix] 40 mg PO DAILY 01/23/18 01/23/18 Umeclidinium [place] [Incruse 62.5 mcg IH DAILY 01/23/18 01/23/18 Ellipta] hydroCHLOROthiazide 25 mg PO DAILY 01/23/18 01/23/18 [Hydrochlorothiazide] Previous Rx's Medication Instructions Recorded Ondansetron ODT [Zofran ODT] 4 mg SL Q6HR PRN #10 tab.rapdis 03/09/19 OxyCODONE/APAP 5/325 [Percocet 1 each PO Q6HR PRN 2 Days #8 tablet 03/09/19 5/325 MG] Allergies Allergy/AdvReac Type Severity Reaction Status Date / Time No Known Allergies Allergy Verified 01/23/18 13:47 Constitutional: Denies: fever Cardiovascular: Denies: chest pain Respiratory: Denies: cough, dyspnea Gastrointestinal: Reports: nausea, vomiting. Denies: abdominal pain Genitourinary: Denies: dysuria Past Medical History - Past Medical History Medical history: Reports: COPD, hyperlipidemia, hypertension Surgical history: Reports: other Psychiatric history: Reports: no psych history - Social History Smoking Status: Current every day smoker Smokeless Tobacco Status: No Alcohol use: Reports: none Drug use: Reports: none Physical Exam - General Limitations: no limitations General appearance: alert, other (Patient appears sweaty) Course Vital Signs Temperature 98.5 F 03/10/19 20:29 Pulse Rate 87 03/10/19 20:29 Respiratory Rate 18 03/10/19 20:29 Blood Pressure 99/71 03/10/19 20:29 O2 Sat by Pulse Oximetry 97 03/10/19 20:29 Temperature 99.2 F 03/11/19 04:54 Pulse Rate 111 03/11/19 04:54 Respiratory Rate 17 03/11/19 04:54 Blood Pressure 131/82 03/11/19 04:54 O2 Sat by Pulse Oximetry 96 03/11/19 04:54 Oxygen Delivery Oxygen Delivery Room Air Psych - MDM Narrative Medical decision making narrative: Note injured in error - Lab Data Result diagrams: 03/11/19 02:54 03/11/19 02:54 Lab Results 03/10/19 03/10/19 03/10/19 Range/Units 20:43 20:43 20:43 WBC 21.1 H D (4.3-11.1) K/mcL RBC 5.70 H (4.19-5.50) M/mcL Hgb 16.2 (12.9-16.9) g/dL Hct 50.0 (37.5-50.1) % MCV 87.7 (83.0-100.0) fL MCH 28.4 (28.0-33.3) pg MCHC 32.4 (31.6-35.5) g/dL RDW 14.5 (11.5-14.5) % Plt Count 236 (140-400) K/mcL MPV 11.1 (9.4-12.4) fL Immature Gran % 1.0 (0-4) % Seg Neutrophils % 86.5 % Lymphocytes % 4.9 % Monocytes % 7.4 % Eosinophils % 0.0 % Basophils % 0.2 % Neutrophils # 18.3 H (1.6-8.9) K/mcL Lymphocytes # 1.0 (0.6-4.6) K/mcL Monocytes # 1.6 H (0.0-1.3) K/mcL Eosinophils # 0.0 (0.0-0.6) K/mcL Basophils # 0.0 (0.0-0.2) K/mcL PT (9.4-12.1) Seconds INR Sodium 135 L (136-145) mEq/L Potassium 3.9 (3.5-5.1) mEq/L Chloride 100 (98-107) mEq/L Carbon Dioxide 25 (23-29) mEq/L BUN 13 (6-20) mg/dL Creatinine 1.17 (0.70-1.30) mg/dL Est GFR ( Amer) > 60 (> 60) Est GFR (Non-Af Amer) > 60 (> 60) BUN/Creatinine Ratio 11 (6-26) Glucose 141 H (70-105) mg/dL Calculated Osmolality 282 (280-300) Lactic Acid (0.5-2.2) mmol/L Calcium 9.0 (8.6-10.3) mg/dL Total Bilirubin 1.6 H (0.3-1.0) mg/dL AST 14 (13-39) Units/L ALT 16 (7-52) Units/L Alkaline Phosphatase 89 (34-104) Units/L Troponin I < 0.03 (< 0.04) ng/mL B-Natriuretic Peptide 166 H (Less than 100) pg/mL Serum Total Protein 6.7 (6.4-8.9) g/dL Albumin 3.8 (3.5-5.7) g/dL Globulin 2.9 (2.4-3.5) g/dL Albumin/Globulin Ratio 1.3 (1.1-2.2) Lipase 13 (11-82) Units/L Urine Color (Yellow) Urine Clarity (Clear) Urine pH (5.0-8.0) pH Units Ur Specific [place] (1.010-1.025) Urine Protein (Neg-Trace) mg/dL Urine Glucose (UA) (Normal) mg/dL Urine Ketones (Negative) mg/dL Urine Blood (Negative) Urine Nitrite (Negative) Urine Bilirubin (Negative) Urine Urobilinogen (Normal) mg/dL Ur Leukocyte Esterase (Negative) Urine Microscopic RBC (0-3) per hpf Urine Microscopic WBC (0-3) per hpf Ur Squamous Epith Cells (None-Few) per lpf Urine Bacteria (None-Few) per hpf Hyaline Casts (None-Few) per lpf Ur Culture Indicated? (NO) 03/10/19 03/10/19 03/10/19 Range/Units 20:43 20:43 20:57 WBC (4.3-11.1) K/mcL RBC (4.19-5.50) M/mcL Hgb (12.9-16.9) g/dL Hct (37.5-50.1) % MCV (83.0-100.0) fL MCH (28.0-33.3) pg MCHC (31.6-35.5) g/dL RDW (11.5-14.5) % Plt Count (140-400) K/mcL MPV (9.4-12.4) fL Immature Gran % (0-4) % Seg Neutrophils % % Lymphocytes % % Monocytes % % Eosinophils % % Basophils % % Neutrophils # (1.6-8.9) K/mcL Lymphocytes # (0.6-4.6) K/mcL Monocytes # (0.0-1.3) K/mcL Eosinophils # (0.0-0.6) K/mcL Basophils # (0.0-0.2) K/mcL PT 14.4 H (9.4-12.1) Seconds INR 1.3 Sodium (136-145) mEq/L Potassium (3.5-5.1) mEq/L Chloride (98-107) mEq/L Carbon Dioxide (23-29) mEq/L BUN (6-20) mg/dL Creatinine (0.70-1.30) mg/dL Est GFR ( Amer) (> 60) Est GFR (Non-Af Amer) (> 60) BUN/Creatinine Ratio (6-26) Glucose (70-105) mg/dL Calculated Osmolality (280-300) Lactic Acid 2.1 (0.5-2.2) mmol/L Calcium (8.6-10.3) mg/dL Total Bilirubin (0.3-1.0) mg/dL AST (13-39) Units/L ALT (7-52) Units/L Alkaline Phosphatase (34-104) Units/L Troponin I (< 0.04) ng/mL B-Natriuretic Peptide (Less than 100) pg/mL Serum Total Protein (6.4-8.9) g/dL Albumin (3.5-5.7) g/dL Globulin (2.4-3.5) g/dL Albumin/Globulin Ratio (1.1-2.2) Lipase (11-82) Units/L Urine Color [place] A (Yellow) Urine Clarity Clear (Clear) Urine pH 5.0 (5.0-8.0) pH Units Ur Specific [place] > 1.030 H (1.010-1.025) Urine Protein 100 H (Neg-Trace) mg/dL Urine Glucose (UA) Normal (Normal) mg/dL Urine Ketones Trace H (Negative) mg/dL Urine Blood Negative (Negative) Urine Nitrite Negative (Negative) Urine Bilirubin Small H (Negative) Urine Urobilinogen Normal (Normal) mg/dL Ur Leukocyte Esterase Small H (Negative) Urine Microscopic RBC 5-15 H (0-3) per hpf Urine Microscopic WBC 5-15 H (0-3) per hpf Ur Squamous Epith Cells Many H (None-Few) per lpf Urine Bacteria None Seen (None-Few) per hpf Hyaline Casts Few (None-Few) per lpf Ur Culture Indicated? YES A (NO) Psychiatric Medical Clearance - Medical Clearance Checklist Medical History: No Social History Section defined Current Vitals: Last Vital Signs Temp 99.2 F 03/11/19 04:54 Pulse 111 03/11/19 04:54 Resp 17 03/11/19 04:54 BP 131/82 03/11/19 04:54 Pulse Ox 96 03/11/19 04:54 Abnormal Labs: Abnormal lab results WBC 21.1 K/mcL (4.3-11.1) H D 03/10/19 20:43 RBC 5.70 M/mcL (4.19-5.50) H 03/10/19 20:43 Neutrophils # 18.3 K/mcL (1.6-8.9) H 03/10/19 20:43 Monocytes # 1.6 K/mcL (0.0-1.3) H 03/10/19 20:43 PT 14.4 Seconds (9.4-12.1) H 03/10/19 20:43 Sodium 135 mEq/L (136-145) L 03/10/19 20:43 Glucose 141 mg/dL (70-105) H 03/10/19 20:43 Total Bilirubin 1.6 mg/dL (0.3-1.0) H 03/10/19 20:43 B-Natriuretic Peptide 166 pg/mL (Less than 100) H 03/10/19 20:43 Urine Color [place] (Yellow) A 03/10/19 20:57 Ur Specific [place] > 1.030 (1.010-1.025) H 03/10/19 20:57 Urine Protein 100 mg/dL (Neg-Trace) H 03/10/19 20:57 Urine Ketones Trace mg/dL (Negative) H 03/10/19 20:57 Urine Bilirubin Small (Negative) H 03/10/19 20:57 Ur Leukocyte Esterase Small (Negative) H 03/10/19 20:57 Urine Microscopic RBC 5-15 per hpf (0-3) H 03/10/19 20:57 Urine Microscopic WBC 5-15 per hpf (0-3) H 03/10/19 20:57 Ur Squamous Epith Cells Many per lpf (None-Few) H 03/10/19 20:57 Ur Culture Indicated? YES (NO) A 03/10/19 20:57 Statement of Medical Clearance: I have evaluated the patient, reviewed diagnostic information, and certify that the patient's medical condition is sufficiently stable that transfer to the psychiatric unit does not pose a significant risk of deterioration.
[2019-03-11] MEDS ORDERED: Piperacillin/Tazobactam 3.375 GM in 0.9 % Sodium Chloride Mini Bag 100 ML IVPB SCH (08:00)
--- NOTE | 2019-03-11 08:45 | AcuteCare Surgery Consult Note ---
Date of Encounter: 03/11/19 Time of Encounter: 07:45 Assessment and Plan (1) Cholelithiasis and acute cholecystitis without obstruction Current Visit: Yes Status: Acute The patient is seen and evaluated and has radiologic, laboratory, and physical examination findings consistent with acute cholecystitis and cholelithiasis. We will plan operation later today. We will attempt laparoscopic cholecystectomy, cholangiogram. Open conversion may be necessary. History of Present Illness Consult date: 03/11/19 Reason for consult: abdominal pain History of present illness: 58-year-old male with several month history of right upper quadrant pain. He is had previous workup with ultrasound demonstrated cholelithiasis. He is had hepatobiliary scanning that demonstrated normal emptying but this is been several weeks ago. He was readmitted with right upper quadrant pain and nausea and vomiting. He has pain localized to the right upper quadrant without radiat ion. He has mild increase in bilirubin. He has a slightly dilated common bile duct. There is no intrahepatic bile duct dilatation. Patient complains bitterly of right upper quadrant pain. Next I personally reviewed the CAT scan of the abdomen. He has inflammatory changes in the right upper quadrant involving the gallbladder gallbladder wall and pericholecystic tissues. There is significant soft tissue stranding. There may be several dots of air in the gallbladder. Findings are consistent with acute cholecystitis. We discussed the risks and benefits of surgery including bleeding, infection, postoperative bile leak, open conversion, and common bile duct injury. He understands this and wishes to proceed. Past Med Surg Social Fam HX - Past Medical History Medical history: COPD, hyperlipidemia, hypertension Additional medical history: SMOKER, CHRONIC BRONCITIS Psychiatric history: no psych history - Past Surgical History Surgical History: other Additional surgical history: hernia repain, L lobectomy, cardiac cath - Social History Smoking Status: Current every day smoker Smokeless Tobacco Status: No Alcohol use: none Drug use: none - Family History Mother Adopted: No Family Member Ethnicity: Non- Living Status: Hx Family Cardiac Disorders: Yes Hx Family Respiratory Disorders: Yes (Emyphesema) Hx Family Cancer: No Hx Family GI Disorders: Yes (babatunde) Hx Family Endocrine Disorder: No Hx Family Neuromuscular Disorders: No Hx Family Neurologic Disorders: No Hx Family HEENT Disorders: No Hx Family Autoimmune Disorders: No Medications and Allergies Aspirin [Adult Low Dose Aspirin EC] 81 mg PO DAILY 10/26/15 [History] Metoprolol [Lopressor] 12.5 mg PO BID 10/26/15 [History] Nitroglycerin [Nitrostat] 1 tab SL PRN PRN 10/26/15 [History] Albuterol Neb [AccuNeb] 3 ml IH Q8H 12/29/15 [History] Lisinopril [Zestril] 10 mg PO DAILY 12/29/15 [History] Albuterol Sulfate [Ventolin Hfa] 18 gm IH Q4H PRN 01/23/18 [History] BuPROPion XL (24 HR) [Wellbutrin XL] 300 mg PO DAILY 01/23/18 [History] Fluticasone/Vilanterol [Breo Ellipta 200-25 Mcg INH] 1 each IH DAILY 01/23/18 [History] Mometasone/Formoterol [Dulera 200 Mcg/5 Mcg Inhaler] 13 gm IH PRN PRN 01/23/18 [History] Montelukast [Singulair] 10 mg PO HS 01/23/18 [History] Pantoprazole Sodium [Protonix] 40 mg PO DAILY 01/23/18 [History] Umeclidinium [place] [Incruse Ellipta] 62.5 mcg IH DAILY 01/23/18 [History] hydroCHLOROthiazide [Hydrochlorothiazide] 25 mg PO DAILY 01/23/18 [History] Ondansetron ODT [Zofran ODT] 4 mg SL Q6HR PRN #10 tab.rapdis 03/09/19 [Rx] OxyCODONE/APAP 5/325 [Percocet 5/325 MG] 1 each PO Q6HR PRN 2 Days #8 tablet 03/09/19 [Rx] Allergy/AdvReac Type Severity Reaction Status Date / Time No Known Allergies Allergy Verified 01/23/18 13:47 Review of Systems All systems PM: The remainder of the systems were reviewed and are negative General Surgery Exam Initial Vital Signs Temp Pulse Resp BP Pulse Ox 98.5 F 87 18 99/71 97 03/10/19 20:29 03/10/19 20:29 03/10/19 20:29 03/10/19 20:29 03/10/19 20:29 - General physical appearance well developed, well nourished, no distress - Neck no masses, no bruits, trachea midline, no lymphadectomy, no venous distension - Respiratory normal expansion, normal respiratory effort, clear to percussion, clear to auscultation - Cardiovascular Cardiovascular exam: Present: RRR, no murmurs/rubs/gallops - Abdomen Abdomen general surgery: Present: bowel sounds present (Involuntary guarding) Abdominal Tenderness: Present: RUQ - Integumentary Integumentary general surgery: Present: warm and dry, no abnormal pigmentation, other (No evidence of clinical jaundice) - Neurologic Present: CN 2-12 grossly intact, normal coordination, normal sensation - Psychiatric Psychiatric general surgery: Present: appropriate, oriented to person, oriented to place, oriented to time, speech is normal, memory intact Exam Initial Vital Signs Temp Pulse Resp BP Pulse Ox 98.5 F 87 18 99/71 97 03/10/19 20:29 03/10/19 20:29 03/10/19 20:29 03/10/19 20:29 03/10/19 20:29 Results - Labs 03/11/19 02:54 03/11/19 02:54 Abnormal lab results WBC 20.2 K/mcL (4.3-11.1) H 03/11/19 02:54 RBC 5.70 M/mcL (4.19-5.50) H 03/10/19 20:43 RDW 14.7 % (11.5-14.5) H 03/11/19 02:54 Neutrophils # 17.6 K/mcL (1.6-8.9) H 03/11/19 02:54 Monocytes # 1.6 K/mcL (0.0-1.3) H 03/10/19 20:43 PT 15.9 Seconds (9.4-12.1) H 03/11/19 02:54 Sodium 135 mEq/L (136-145) L 03/11/19 02:54 Glucose 114 mg/dL (70-105) H 03/11/19 02:54 Calcium 8.4 mg/dL (8.6-10.3) L 03/11/19 02:54 Total Bilirubin 1.3 mg/dL (0.3-1.0) H 03/11/19 02:54 Direct Bilirubin 0.4 mg/dL (0.0-0.2) H 03/11/19 02:54 B-Natriuretic Peptide 166 pg/mL (Less than 100) H 03/10/19 20:43 Serum Total Protein 6.2 g/dL (6.4-8.9) L 03/11/19 02:54 Amylase 18 Units/L (29-103) L 03/11/19 02:54 Lipase 8 Units/L (11-82) L 03/11/19 02:54 Urine Color [place] (Yellow) A 03/10/19 20:57 Ur Specific [place] > 1.030 (1.010-1.025) H 03/10/19 20:57 Urine Protein 100 mg/dL (Neg-Trace) H 03/10/19 20:57 Urine Ketones Trace mg/dL (Negative) H 03/10/19 20:57 Urine Bilirubin Small (Negative) H 03/10/19 20:57 Ur Leukocyte Esterase Small (Negative) H 03/10/19 20:57 Urine Microscopic RBC 5-15 per hpf (0-3) H 03/10/19 20:57 Urine Microscopic WBC 5-15 per hpf (0-3) H 03/10/19 20:57 Ur Squamous Epith Cells Many per lpf (None-Few) H 03/10/19 20:57 Ur Culture Indicated? YES (NO) A 03/10/19 20:57 Diabetes panel 03/10/19 03/11/19 Range/Units 20:43 02:54 Sodium 135 L 135 L (136-145) mEq/L Potassium 3.9 3.7 (3.5-5.1) mEq/L Chloride 100 100 (98-107) mEq/L Carbon Dioxide 25 27 (23-29) mEq/L BUN 13 12 (6-20) mg/dL Creatinine 1.17 1.00 (0.70-1.30) mg/dL Glucose 141 H 114 H (70-105) mg/dL Calcium 9.0 8.4 L (8.6-10.3) mg/dL AST 14 14 (13-39) Units/L ALT 16 14 (7-52) Units/L Alkaline Phosphatase 89 77 (34-104) Units/L Albumin 3.8 3.5 (3.5-5.7) g/dL Triglycerides 107 (< 150) mg/dL HDL Cholesterol 44 (40-59) mg/dL Calcium panel 03/10/19 03/11/19 Range/Units 20:43 02:54 Calcium 9.0 8.4 L (8.6-10.3) mg/dL Albumin 3.8 3.5 (3.5-5.7) g/dL Pituitary panel 03/10/19 03/11/19 Range/Units 20:43 02:54 Sodium 135 L 135 L (136-145) mEq/L Potassium 3.9 3.7 (3.5-5.1) mEq/L Chloride 100 100 (98-107) mEq/L Carbon Dioxide 25 27 (23-29) mEq/L BUN 13 12 (6-20) mg/dL Creatinine 1.17 1.00 (0.70-1.30) mg/dL Glucose 141 H 114 H (70-105) mg/dL Calcium 9.0 8.4 L (8.6-10.3) mg/dL Adrenal panel 03/10/19 03/11/19 Range/Units 20:43 02:54 Sodium 135 L 135 L (136-145) mEq/L Potassium 3.9 3.7 (3.5-5.1) mEq/L Chloride 100 100 (98-107) mEq/L Carbon Dioxide 25 27 (23-29) mEq/L BUN 13 12 (6-20) mg/dL Creatinine 1.17 1.00 (0.70-1.30) mg/dL Glucose 141 H 114 H (70-105) mg/dL Calcium 9.0 8.4 L (8.6-10.3) mg/dL Total Bilirubin 1.6 H 1.3 H (0.3-1.0) mg/dL AST 14 14 (13-39) Units/L ALT 16 14 (7-52) Units/L Alkaline Phosphatase 89 77 (34-104) Units/L Albumin 3.8 3.5 (3.5-5.7) g/dL All other labs normal. - Imaging CT scan - abdomen: image reviewed (Personally reviewed CAT scan of the abdomen. There is extensive inflammatory changes in the right upper quadrant consistent with acute cholecystitis and cholelithiasis. The gallbladder wall is thickened. There is pericholecystic fluid. There is pericholecystic soft tissue changes consistent with severe acute cholecystitis.) Consult Discharge Plan - Plan Referrals: Sonia Bradley MD [Primary Care Provider] -
--- NOTE | 2019-03-11 10:31 | Anesthesia Evaluation PreOp ---
Date of Encounter: 03/11/19 Time of Encounter: 10:29 - Past History Planned Operation: LAP CHOLECYSTECTOMY Cardiac History: CHF (MILDLY ELEVATED BNP), HTN, Hyperlipidemia, Other (2016: STRESS TEST - APICAL ISCHEMIA & TID, LHC - MINIMAL CAD. PT CONTINUES TO HAVE RETROSTERNAL PAIN WITH EXERTION RELIEVED WITH REST. 12/2018 TTE: NORMAL EF, MILD DIATOLIC DYSFUNCTION. ISCHEMIC WORKUP PENDING INSURANCE APPROVAL) Pulmonary History: Smoker, COPD (SEVERE BY SPIROMETRY, HOME O2 2LPM HS), CHARLI Dx (BIPAP) CLINICAL TRIAL ASSISTANT History: Other (ANXIETY, DEPRESSION) Other Medical History: GERD, Other (OBESITY) Anesthesia History: No Prior Anesthetic Complications, Past Anesthesia Alcohol Use: none Drug use: none Medications and Allergies Aspirin [Adult Low Dose Aspirin EC] 81 mg PO DAILY 10/26/15 [History] Metoprolol [Lopressor] 12.5 mg PO BID 10/26/15 [History] Nitroglycerin [Nitrostat] 1 tab SL PRN PRN 10/26/15 [History] Albuterol Neb [AccuNeb] 3 ml IH Q8H 12/29/15 [History] Lisinopril [Zestril] 10 mg PO DAILY 12/29/15 [History] Albuterol Sulfate [Ventolin Hfa] 18 gm IH Q4H PRN 01/23/18 [History] BuPROPion XL (24 HR) [Wellbutrin XL] 300 mg PO DAILY 01/23/18 [History] Fluticasone/Vilanterol [Breo Ellipta 200-25 Mcg INH] 1 each IH DAILY 01/23/18 [History] Mometasone/Formoterol [Dulera 200 Mcg/5 Mcg Inhaler] 13 gm IH PRN PRN 01/23/18 [History] Montelukast [Singulair] 10 mg PO HS 01/23/18 [History] Pantoprazole Sodium [Protonix] 40 mg PO DAILY 01/23/18 [History] Umeclidinium [place] [Incruse Ellipta] 62.5 mcg IH DAILY 01/23/18 [History] hydroCHLOROthiazide [Hydrochlorothiazide] 25 mg PO DAILY 01/23/18 [History] Ondansetron ODT [Zofran ODT] 4 mg SL Q6HR PRN #10 tab.rapdis 03/09/19 [Rx] OxyCODONE/APAP 5/325 [Percocet 5/325 MG] 1 each PO Q6HR PRN 2 Days #8 tablet 03/09/19 [Rx] Allergy/AdvReac Type Severity Reaction Status Date / Time No Known Allergies Allergy Verified 01/23/18 13:47 - Meds/Allergy Pre-op Review Medications Reviewed: Yes Allergies Reviewed: Yes Beta Blockers on Current Med List: Yes If Beta Blockers taken, Date/Time (Last Dose taken): SEE MAR Anesthesia Results - Labs 03/11/19 02:54 03/11/19 02:54 Laboratory Tests 03/10/19 03/10/19 03/11/19 20:43 20:43 02:54 PT 15.9 H INR 1.4 APTT 34.6 Lactic Acid Calcium Total Bilirubin AST ALT Alkaline Phosphatase Troponin I < 0.03 B-Natriuretic Peptide 166 H Serum Total Protein Albumin 03/11/19 03/11/19 02:54 05:32 PT INR APTT Lactic Acid 1.0 Calcium 8.4 L Total Bilirubin 1.3 H AST 14 ALT 14 Alkaline Phosphatase 77 Troponin I B-Natriuretic Peptide Serum Total Protein 6.2 L Albumin 3.5 - Imaging EKG: report reviewed (SR) Anesthesia Exam Vital Signs/O2 Sat/Glucose, Most Recent Temp Pulse Resp BP Pulse Ox 99.2 F 117 18 117/75 95 03/11/19 08:23 03/11/19 08:23 03/11/19 09:27 03/11/19 08:23 03/11/19 09:27 Blood Glucose* 109 Weight: 125 KG - BMI 37 NPO (# of Hours): 8 - HEENT Mallampati: II (BEARDED) Teeth: Edentulous - Cardiac Rhythm: Regular - Pulmonary Breath Sounds: bilateral Clear Anesthesia Assess/Plan ASA Score: 4 Anesthetic Plan: General Monitoring Plan: Standard Monitors Recovery Plan: PACU Anes Supervising Prov Stmt: BETA MAXIMILIAN NOT ADMINISTERED THIS ADMISSION. 12.5 MG METOPROLOL ONE TIME DOSE ORDERED.
--- NOTE | 2019-03-11 12:13 | Event Note ---
Date of Encounter: 03/11/19 Time of Encounter: 09:00 Pt septic from acute cholecystitis. Discussed case w Sufrancis Menendez, who says he has already evaluated the patient and plans to take patient to OR for cholecystectomy. Appreciate plan for definitive management. Continue Zosyn.
[2019-03-11] MEDS ORDERED: Lidocaine HCL 4 ML Topical Solution (Laryng-O-Jet Kit Sterile Pak) TP ONE (15:04)
[2019-03-11] MEDS ORDERED: *HR* Rocuronium Bromide 50 MG/5 ML VIAL ONE ×2 (15:05→16:33)
[2019-03-11] MEDS ORDERED: *HR* Propofol 200 MG/20 ML VIAL IVP ONE ×2 (15:05→15:06)
[2019-03-11] MEDS ORDERED: Lidocaine -MPF 2% 2 ML VIAL ONE (15:05)
[2019-03-11] MEDS ORDERED: *HR* FentaNYL (PF) 100 MCG/2 ML VIAL ONE (15:05)
[2019-03-11] MEDS ORDERED: *HR* Midazolam HCl 2 MG/2 ML VIAL ONE (15:05)
[2019-03-11] MEDS ORDERED: *HR* Succinylcholine 200 MG/10 ML VIAL IVP ONE (15:06)
[2019-03-11] MEDS ORDERED: CefOXitin 1,000 MG VIAL ONE ×2 (15:08→16:44)
[2019-03-11] MEDS ORDERED: Isovue-300 50 ML VIAL ONE (15:11)
[2019-03-11] MEDS ORDERED: Dexamethasone 4 MG/ML VIAL ONE (15:13)
[2019-03-11] MEDS ORDERED: Ondansetron 4 MG/2 ML VIAL ONE (15:13)
--- NOTE | 2019-03-11 15:36 | Gastroenterology Consult Note ---
Date of Encounter: 03/11/19 Time of Encounter: 11:25 - Assessment and plan (1) Right upper quadrant abdominal pain Current Visit: No Status: Acute Assessment and plan: Likely secondary to cholecystitis. Gallbladder US 03/09 which revealed cholelithiasis as well as gallbladder sludge, and minimal common bile duct dilatation. CT A/P concerning for acute cholecystitis. MRCP was completed but images significantly degraded due to respiratory motion artifact there is acute calculus cholecystitis, questionable 3 mm filling defect which could reflect will be related to flow artifact, and CBD 7 mm. On admission TB 1.6, AST 14, ALT 16, and alk phos 89. Today TB 1.3, AST 14, ALT 14, alk phos 77. Surgery has been consulted and plan for lap babatunde with IOC today. If IOC shows obstruction, will plan for ERCP. (2) Cholelithiasis and acute cholecystitis without obstruction Current Visit: Yes Status: Acute Assessment and plan: As above. - Time Spent With Patient Total time spent is greater than 50% in coordination of care (as documented) at patient's floor/unit and/or counseling patient: GI History of Present Illness - Data of Consult Patient: known to practice within the last 3 years Consult date: 03/11/19 Requesting Physician: Caleb Lopez - Consult Narrative Reason for consult: Cholelithiasis, CBD dilation History of present illness: Mr. Agarwal is a 58 year old male with PMHx of COPD, HLD, HTN who presented to the ED with RUQ pain, fever, chills, nausea, and vomiting. Symptoms are identical to when he presented to ER with same symptoms on 03/09. Gallbladder US 03/09 which revealed cholelithiasis as well as gallbladder sludge, and minimal common bile duct dilatation. He returned to the ED 03/10 with worsening symptoms and CT A/P concerning for acute cholecystitis. Surgical team was consult and is planning for gallbladder surgery with intraoperative cholangiogram. MRCP was completed but images significantly degraded due to respiratory motion artifact there is acute calculus cholecystitis, questionable 3 mm filling defect which could reflect will be related to flow artifact. Procedures: Colonoscopy 05/02/2018 Dr. Carrasquillo: Three tubular adenoma ranging from 3-8 mm. NSAIDs: ASA Anticoagulation: None Past Med Surg Social Fam HX - Past Medical History Medical history: COPD, hyperlipidemia, hypertension Additional medical history: SMOKER, CHRONIC BRONCITIS Psychiatric history: no psych history - Past Surgical History Surgical History: other Additional surgical history: hernia repain, L lobectomy, cardiac cath - Social History Smoking Status: Current every day smoker Smokeless Tobacco Status: No Alcohol use: none Drug use: none - Family History Mother Adopted: No Family Member Ethnicity: Non- Living Status: Hx Family Cardiac Disorders: Yes Hx Family Respiratory Disorders: Yes (Emyphesema) Hx Family Cancer: No Hx Family GI Disorders: Yes (babatunde) Hx Family Endocrine Disorder: No Hx Family Neuromuscular Disorders: No Hx Family Neurologic Disorders: No Hx Family HEENT Disorders: No Hx Family Autoimmune Disorders: No - Gastrointestinal Gastrointestinal: Present: as per HPI - Constitutional Constitutional: as per HPI - EENT Eyes: as per HPI Ears: Present: as per HPI Nose, mouth and throat: Present: as per HPI - Cardiovascular Cardiovascular ROS: Present: as per HPI - Respiratory Respiratory IM: Present: as per HPI - Genitourinary Genitourinary: Absent: change in color, Urinary frequency - Neurological ROS Neurological GI: Present: as per HPI - Hematologic/Lymphatic Hematologic/Lymphatic pediatric: Present: as per HPI - Musculoskeletal Musculoskeletal ROS GI: Present: as per HPI - Integumentary Integumentary GI: Present: as per HPI - Psychiatric ROS Psychiatric GI: Present: as per HPI - Endocrine Endocrine IM: Present: as per HPI - Constitutional Vitals: Temp Pulse Resp BP Pulse Ox 99.0 F 128 18 121/84 91 03/11/19 11:48 03/11/19 11:48 03/11/19 11:48 03/11/19 11:48 03/11/19 11:48 General appearance: Present: cooperative, A&O X 3, no acute distress, answers q uestions appropriately - Head Head exam: Present: atraumatic, normocephalic - Eye Eye exam: Present: normal appearance, sclera anicteric - ENT ENT exam: Present: mucous membranes moist - Neck Neck exam general surgery: Present: normal inspection, trachea midline - Respiratory Respiratory exam: Present: CTAB. Absent: rales, rhonchi, wheezes - Cardiovascular Cardiovascular exam: Present: RRR, +S1, +S2 - GI/Abdominal GI/Abdominal exam: Present: soft, tenderness (RUQ and epigastric tenderness), no peritoneal signs. Absent: distended, firm, guarding - Rectal Rectal exam: Present: deferred - Extremities Exam Extremities exam: Present: warm - Neurological Exam Neurological exam: Present: no focal deficits - Psychiatric Psychiatric exam: Present: normal affect, normal mood - Skin Skin exam: Present: dry, intact, normal color, warm Results - Labs CBC & Chem 7: 03/11/19 02:54 03/11/19 02:54 Labs: Last Result 03/11/19 02:54 Calcium 8.4 L Triglycerides 107 Entire Visit 03/11/19 02:54 Total Bilirubin 1.3 H AST 14 ALT 14 Amylase 18 L Lipase 8 L - ABG ABG results: PT/INR, D-dimer PT 15.9 Seconds (9.4-12.1) H 03/11/19 02:54 - Impressions Impressions Chest X-Ray 03/10/19 20:23 IMPRESSION: Stable chest x-ray status post left upper lobectomy. No acute disease. D/ / Jay Resendez MD / Jay Resendez MD Interpreting Provider: Jay Resendez MD Abdomen/Pelvis CT 03/10/19 20:30 IMPRESSION: 1. Evidence for cholesterol gallstones with inflammatory changes surrounding the gallbladder suggesting acute cholecystitis. 2. Airspace opacification in the right lower lobe could represent atelectatic changes or pneumonia 3. Colonic diverticulosis without evidence for diverticulitis 4. No obstructive uropathy D/ / Jerardo Dickerson MD / Jerardo Dickerson MD Interpreting Provider: Jerardo Dickerson MD Abdomen MRI 03/11/19 22:48 IMPRESSION: 1. Acute calculus cholecystitis. 2. MRCP images are significantly degraded due to respiratory motion artifact. There is a questionable 3 mm filling defect on the axial T2 HASTE images which could reflect choledocholithiasis or be related to flow artifact. Minimal common bile duct dilation without significant intrahepatic biliary duct dilation. 3. Mild hepatic steatosis. 4. Inflammatory stranding and fluid within the right upper quadrant is again identified and also along the pancreas. Recommend correlation with amylase and lipase. D/ / 03/11/2019 07:37:55 Erin Landaverde MD / paco Interpreting Provider: Erin Landaverde MD Consult Discharge Plan - Plan Referrals: Sonia Bradley MD [Primary Care Provider] -
[2019-03-11] MEDS ORDERED: CefOXitin 2,000 MG VIAL ONE (16:02)
[2019-03-11] MEDS ORDERED: *HR* PHENYLEPHRINE 1,000 MCG/10 ML SYRINGE IVP ONE (16:03)
--- NOTE | 2019-03-11 16:40 | Electrocardiograph Report ---
[address] [address] Test Date: 2019-03-10 [facility] Department: [facility]4 Room: 3A Gender: M Motorboat Mechanic Inboard/Outboard: : 1960 Requested By: Jake Disla Order Number: [id number] Reading MD: Jonathan Nicholas Measurements Intervals [place] Rate: 85 P: 67 DE: 139 QRS: 37 QRSD: 87 T: 46 QT: 351 QTc: 418 Interpretive Statements Sinus rhythm Electronically Signed On 03-11-2019 16:38:36 EDT by Jonathan Nicholas
[2019-03-11] MEDS ORDERED: Neostigmine Methylsulfate 3 MG/3 ML SYRINGE ONE (17:09)
--- NOTE | 2019-03-11 17:35 | Operative Note ---
Date of procedure: 03/11/19 Pre-op diagnosis: Acute cholecystitis and cholelithiasis Post-op diagnosis: other (necrotic and perforated gallbladder) Procedure: #1 attempted laparoscopic cholecystectomy. #2 open cholecystectomy Anesthesia: LACY Surgeon: Abdias Menendez Was there an technician assistant present: No Estimated blood loss (cc): 150 Specimen: Gallbladder and contents Condition: stable Disposition: PACU Procedure in Detail: After informed consent the patients taking major operative suite placed in supine position and given adequate general endotracheal anesthesia. Abdomen is prepped and draped in sterile fashion utilizing ChloraPrep standard draping techniques. Timeout was taken and the patient was identified. Made a vertical midline incision above the umbilicus avoiding the previously placed umbilical hernia mesh. 2 traction stitches of 0 Vicryl were placed. The abdomen was entered visually and I placed a Murray trocar. The abdomen was insufflated to 15 mmHg pressure CO2. I placed a 12 trocar in the subxiphoid area and 25 mm trochars right upper quadrant. The gallbladder was completely encased in acute and chronic inflammatory adhesions. After 20 minutes I was able to identify the top the gallbladder with aggressive dissection techniques. The top the gallbl adder was gangrenous and necrotic. The gallbladder was fully perforated with evidence of bile ascites in the right gutter. The ascites was suctioned free. I work for another 45 minutes and placed an additional 12 mm trocar as well as a paddle retractor in 30 degree scope in an effort to identify the structures at the neck of the gallbladder. After 45 minutes of dissection I was unable to identify the structures and aborted the laparoscopic approach. All trochars were removed. The patient was positioned for open cholecystectomy. I made a standard subcostal incision and divided the anterior rectus fascia and rectus muscle and posterior rectus fascia. Packs were placed. Bookwalter retractor was placed. The gallbladder was isolated. The neck of the gallbladder was intensely inflamed and could not be dissected off the common bile duct. I identified the common hepatic artery and the cystic artery. The cystic artery was divided with 2 surgical clips are splenial one distally. The cystic duct was behind the cystic artery and markedly inflamed. I was unable to obtain a cholangiogram. The cystic duct was divided with 2 surgical clips proximally and one distally. The cystic duct stump was inadequately secured with the surgical clips and I placed a [id number] 3-0 silk. This gave an excellent technical result. The gallbladder was removed from gallbladder fossa using electrocautery. He was noted that the dome of the gallbladder was completely perforated with 3 gallstones free in the abdominal cavity. There was free pus in the abdominal cavity. The gallbladder was removed. I irrigated with copious amounts of antibiotic containing solution. #10 Girish-Manzo drain was placed in the subhepatic space. Posterior rectus sheath was closed with looped 0 PDS. The anterior rectus sheath was closed with looped 0 PDS. Skin was closed with interrupted 2-0 Vicryl and the skin was closed with skin clips. He tolerated the procedure well.
--- NOTE | 2019-03-11 18:05 | Anesthesia Evaluation Post Op ---
Date of Encounter: 03/11/19 Time of Encounter: 18:04 - Vital Signs Vital Signs: Vital Signs/O2 Sat, Most Current Temp Pulse Resp BP Pulse Ox 99.6 F 109 20 117/93 93 03/11/19 17:35 03/11/19 17:55 03/11/19 17:55 03/11/19 17:55 03/11/19 17:55 - Lungs Lungs: Clear Ascult./Percussion - Airway Airway: Non-obstructed - Cardiovascular Regular Rate - Mental Status Mental Status: Alert & Oriented, Answers Appropriately - Pain Pain Scale: 2 Pain Scale used: Numeric (1 - 10) - Nausea Vomiting Nausea Vomiting: Not Present - Hydration Hydration: Ice chips, Has not voided - Discharge PostOp Status: Transfer Patient to floor
[2019-03-11] MEDS: Piperacillin/Tazobactam 3.375 GM in 0.9 % Sodium Chloride Mini Bag 100 ML IVPB SCH (18:38)
[2019-03-11] MEDS: Acetaminophen IV 1,000 MG/100 ML INFUS..BTL IVPB SCH ×2 (19:41→23:56)
[2019-03-11] MEDS ORDERED: Ondansetron ODT 4 MG TAB.RAPDIS SL PRN (20:17)
[2019-03-12] MEDS: Piperacillin/Tazobactam 3.375 GM in 0.9 % Sodium Chloride Mini Bag 100 ML IVPB SCH ×3 (02:41→18:37)
[2019-03-12 02:55] LABS: Basophils % 0.1 %; Hematocrit 45.7 % (37.5-50.1); Hemoglobin 14.2 g/dL (12.9-16.9); Immature Granulocytes % 0.8 % (0-4); Lymphocytes # 0.8 K/mcL (0.6-4.6); Lymphocytes % 4.6 %; Mean Corpuscular HGB Conc 31.1 g/dL (31.6-35.5); Mean Corpuscular Hemoglobin 28.2 pg (28.0-33.3); Mean Corpuscular Volume 90.7 fL (83.0-100.0); Neutrophils # 14.7 K/mcL (1.6-8.9); Platelet Count 238 K/mcL (140-400); Red Blood Count 5.04 M/mcL (4.19-5.50); Red Cell Distribution Width 15.1 % (11.5-14.5); Segmented Neutrophils % 88.5 %; White Blood Count 16.7 K/mcL (4.3-11.1)
[2019-03-12 03:14] LABS: BUN/Creatinine Ratio 14 (6-26); Blood Urea Nitrogen 16 mg/dL (6-20); Calcium 8.9 mg/dL (8.6-10.3); Carbon Dioxide 28 mEq/L (23-29); Chloride 99 mEq/L (98-107); Glucose 127 mg/dL (70-105); Osmolality,Calculated 283 (280-300); Potassium 3.8 mEq/L (3.5-5.1); Sodium 135 mEq/L (136-145); eGFR For African Americans > 60 (> 60); eGFR For Non-African Americans > 60 (> 60)
[2019-03-12] MEDS ORDERED: Pantoprazole 40 MG VIAL IVP SCH (06:00)
[2019-03-12] MEDS: Acetaminophen IV 1,000 MG/100 ML INFUS..BTL IVPB SCH ×2 (06:13→12:18)
[2019-03-12] MEDS: *HR* Heparin 5,000 UNIT/ML VIAL SQ SCH ×3 (06:13→20:31)
--- NOTE | 2019-03-12 08:18 | Internal Med Progress Note ---
Hospitalist Progress Note - Encounter Date of Encounter: 03/12/19 Time of Encounter: 08:18 - Subjective Interval History: Pt sitting up in bed in good spirits, denies anything except mild nonspecific abd pain at incision sites, reports has decent appetite and tolerating clear and actually wants solid food but no flatus or BM and thus instructed he should wait. Able to ambulate without pain. Overall feels much better than admission and is appreciative of surgical intervention. - Exam Vitals: Temp Pulse Resp BP Pulse Ox 98.5 F 93 18 108/80 91 03/12/19 07:06 03/12/19 07:06 03/12/19 07:06 03/12/19 07:06 03/12/19 07:06 Exam: General: NAD, good eye contact, well appearing, obese Thoracic: end-expiratory wheezes diffusely Cardio: Normal S1 and S2, regular rate and rhythm Abdomen: Soft, nontender, nondistended, bandages from open surgery c/d/i Extremities: Warm, well perfused. DP pulses 2+ b/l. No edema. Skin: Intact. No rashes, bruises, or ulcers Neuro: Awake, fully oriented. Speech fluent - Summary of Assessment and Plan Summary of Assessment and Plan: Lopez Agarwal is a 58 M w hx HTN, HLD, COPD, smoker, obesity, who p/w RUQ abd pain, F/C/N/V, found to have SIRS 3/4 (HR 120s, T'102, WBC 21), CT abd showing GB thickening and mild ductal dilation, concerning for acute calculus cholecystitis causing sepsis. Acute cholecystitis: taken for open cholecystectomy 03/11 by Aleida Menendez - Aleida following, appreciate surgical management - continue Zosyn Sepsis: resolved Chronic bronchitis: home inhalers prn HTN: home lisinopril 10, lopressor 12.5 bid, holding hctz 25 HLD: home ASA, not on statin GERD: home PPI Smoker: nicotine offered, cessation advised Obesity: BMI 37 PPx: SCDs and ambulation Activity: ambulate FEN: liquids, no MIVF Lines: PIV Consults: Aleida Code: Full Dispo: patient requires inpatient eval and management at this time. Anticipate 2-3 days. Will be homegoing Internal Medicine: Result - Labs CBC & Chem 7: 03/12/19 01:51 03/12/19 01:51 Labs: Short CBC 03/12/19 Range/Units 01:51 WBC 16.7 H (4.3-11.1) K/mcL Hgb 14.2 (12.9-16.9) g/dL Hct 45.7 (37.5-50.1) % Plt Count 238 (140-400) K/mcL Neutrophils # 14.7 H (1.6-8.9) K/mcL BMP 03/12/19 01:51 Sodium 135 L Potassium 3.8 Chloride 99 Carbon Dioxide 28 BUN 16 Creatinine 1.12 Glucose 127 H Calcium 8.9 - ABG Interpretation ABG results: PT/INR, D-dimer PT 15.9 Seconds (9.4-12.1) H 03/11/19 02:54 Consult Discharge Plan - Plan Instructions: Girish-Manzo Drain Care (DC), Open Cholecystectomy (DC) Additional Instructions: General Surgical Discharge Instructions 1. No pushing, pulling, or lifting greater than 15 lbs for 6 weeks. 2. You may remove your dressings and shower beginning 03/13/2019, but no tub baths, soaking, or swimming for 2 weeks. 3. No driving for two weeks unless otherwise specified and then you may resume driving when you are off narcotics and are safe to react in a car. 4. Take ibuprofen every 8 hours for discomfort. If this does not relieve discomfort, you may take your chronic Percocet. Eat a small snack with pain medi cation as this will help reduce the risk of nausea. Take narcotics as directed. Do not take more narcotics then directed and do not share your narcotics with any other person. Do not drink alcohol while on narcotics. You can take the Zofran/ondansetron if needed for nausea or with a dose of narcotics to prevent nausea. 5. Take stool softeners (Colace) or a water based laxative (Miralax) while taking narcotics. You may hold for loose stools. 6. Report any fevers greater than 100.5F, increase abdominal discomfort, radha inage that looks like pus, increased redness or pain at the surgical site, or any vomiting. 7. Report any pain in the calves, shortness of breath, or rapid heartbeat. 8. Follow-up in the office as directed. 9. If you were prescribed antibiotics, do not stop them without talking to your provider. Daily MICHELLE Drain Care: 1. Remove dressings. Shower with antibacterial soap. 2. Do not let the MICHELLE drain dangle from your body. Use the safety pin to secure to your clothing. Secure the MICHELLE to a lanyard or other type of long necklace when you shower. 3. Replace drain gauze and taped to secure. 4. Record the output from your MICHELLE bulb (at least once daily) on the form provided and bring this with you to your follow-up appointment. 5. Keep the MICHELLE drain to suction (squeeze the bulb and replace the cap while squeezing). 6. Strip the lines twice daily (hold onto the line as close to the body as you can, then with the other hand push the contents of the line into the MICHELLE bulb). Referrals: Sonia Bradley MD [Primary Care Provider] - Gia Castañeda CNP [Advanced Practice Nurse] - 03/18/19 2:30 pm
[2019-03-12] MEDS: Aspirin Enteric Coated 81 MG Tablet PO SCH (08:24)
[2019-03-12] MEDS: BuPROPion XL (24 HR) 150 MG TABLET PO SCH (08:24)
[2019-03-12] MEDS ORDERED: hydroCHLOROthiazide 25 MG TABLET PO SCH (09:00)
--- NOTE | 2019-03-12 10:35 | AcuteCareSurgery Progress Note ---
<Gia Castañeda - Last Filed: 03/12/19 10:32> Date of Encounter: 03/12/19 Time of Encounter: 08:00 - Assessment and Plan (1) Cholecystitis Current Visit: Yes Status: Acute Date of procedure: 03/11/19 Pre-op diagnosis: Acute cholecystitis and cholelithiasis Post-op diagnosis: other (necrotic and perforated gallbladder) Procedure: #1 attempted laparoscopic cholecystectomy. #2 open cholecystectomy Anesthesia: GETA Surgeon: Abdias Menendez POD #1 as above. Pathology remains pending at this time. He is having serosanguineous output in his MICHELLE. There is no evidence for a bile leak. His abdominal discomfort is controlled with medications. He is noted to have low- grade fever in less than 24 hours postoperatively. We did review with the patient that this is related to atelectasis and he should use his incentive spirometer aggressively as opposed to postoperative surgical complication. He is on a clear liquid diet. He can advances diet as tolerated. Continue PO pain control. Of note patient is on Percocet at baseline at home. He will be able to continue this with ibuprofen at discharge. Continue IV antibiotics at this time given his perforation and necrotic gallbladder. Continue hospital cares per primary team. Plan: Continue supportive care and discomfort management while awaiting full return of bowel function Continue G.I. and DVT prophylaxis Incentive spirometry 10 times every hour while awake Out of bed to chair TID, do not offer meal trays while in the bed Activity as tolerated Apply ice 20 minutes on 20 minutes off as needed ambulate TID Can saline lock IV when he is tolerating a full liquid diet Repeat am labs Surgery will continue to follow Aggressive pulmonary toileting Subjective Patient reports: no new complaints, feels better, still having pain ((feels different than before surgery)), tolerating liquids well, voiding w/o difficulty, no flatus, no bowel movement, afebrile Objective Vital Signs - Last 8 Hours Temp Pulse Resp BP Pulse Ox 03/12/19 08:41 91 03/12/19 07:06 98.5 F 93 18 108/80 91 03/12/19 02:35 98.3 F 92 16 112/78 94 Intake and Output 03/11/19 03/12/19 03/12/19 23:59 07:59 15:59 Intake Total 200 / 5400 920 / 920 Output Total 340 / 1340 350 / 940 590 / 940 Balance -140 / 4060 570 / -20 -590 / -20 Intake: IV Fluids 200 / 5400 800 / 800 KCl 20 mEq in 0.9% Sodium 500 / 500 Chloride 20 meq In 1,000 ml @ 100 mls/hr IVC .Q10H [facility] Rx#: [id number] Ofirmev 1,000 mg/100 ml 1,000 100 / 100 200 / 200 mg In 100 ml @ 400 mls/hr IVPB Q6HR [facility] Rx#:[id number] Zosyn 3.375 GM In 0.9 % Sodium 100 / 100 100 / 100 Chloride (Mini-Bag +) 100 ML @ 25 mls/hr IVPB Q8H [facility] Rx#: [id number] Oral 120 / 120 Output: Urine 300 / 850 550 / 850 Estimated Blood Loss 150 / 150 Wound Drainage 190 / 190 50 / 90 40 / 90 LRQ 190 / 190 50 / 90 40 / 90 - General physical appearance well nourished, no distress, moderate pain (controlled) - ENT atraumatic, normocephalic - Neck Neck exam: trachea midline - Respiratory normal expansion, normal respiratory effort - Cardiovascular Cardiovascular exam: Present: RRR - Abdomen Abdomen: Present: bowel sounds present, soft, tender (expected postoperative), wound (MICHELLE site unremarkable. SS drainage) Hernia: none - Incision Incision: Present: clean and dry, intact - Integumentary no rash - Neurologic normal sensation - Musculoskeletal normal posture - Psychiatric oriented to time, oriented to person, oriented to place, speech is normal - Labs 03/12/19 01:51 03/12/19 01:51 Diabetes panel 03/12/19 Range/Units 01:51 Sodium 135 L (136-145) mEq/L Potassium 3.8 (3.5-5.1) mEq/L Chloride 99 (98-107) mEq/L Carbon Dioxide 28 (23-29) mEq/L BUN 16 (6-20) mg/dL Creatinine 1.12 (0.70-1.30) mg/dL Glucose 127 H (70-105) mg/dL Calcium 8.9 (8.6-10.3) mg/dL Calcium panel 03/12/19 Range/Units 01:51 Calcium 8.9 (8.6-10.3) mg/dL Pituitary panel 03/12/19 Range/Units 01:51 Sodium 135 L (136-145) mEq/L Potassium 3.8 (3.5-5.1) mEq/L Chloride 99 (98-107) mEq/L Carbon Dioxide 28 (23-29) mEq/L BUN 16 (6-20) mg/dL Creatinine 1.12 (0.70-1.30) mg/dL Glucose 127 H (70-105) mg/dL Calcium 8.9 (8.6-10.3) mg/dL Adrenal panel 03/12/19 Range/Units 01:51 Sodium 135 L (136-145) mEq/L Potassium 3.8 (3.5-5.1) mEq/L Chloride 99 (98-107) mEq/L Carbon Dioxide 28 (23-29) mEq/L BUN 16 (6-20) mg/dL Creatinine 1.12 (0.70-1.30) mg/dL Glucose 127 H (70-105) mg/dL Calcium 8.9 (8.6-10.3) mg/dL Consult Discharge Plan - Plan Instructions: Girish-Manzo Drain Care (DC), Open Cholecystectomy (DC) Additional Instructions: General Surgical Discharge Instructions 1. No pushing, pulling, or lifting greater than 15 lbs for 6 weeks. 2. You may remove your dressings and shower beginning 03/13/2019, but no tub baths, soaking, or swimming for 2 weeks. 3. No driving for two weeks unless otherwise specified and then you may resume driving when you are off narcotics and are safe to react in a car. 4. Take ibuprofen every 8 hours for discomfort. If this does not relieve discomfort, you may take your chronic Percocet. Eat a small snack with pain medication as this will help reduce the risk of nausea. Take narcotics as directed. Do not take more narcotics then directed and do not share your narcotics with any other person. Do not drink alcohol while on narcotics. You can take the Zofran/ondansetron if needed for nausea or with a dose of narcotics to prevent nausea. 5. Take stool softeners (Colace) or a water based laxative (Miralax) while taking narcotics. You may hold for loose stools. 6. Report any fevers greater than 100.5F, increase abdominal discomfort, drainage that looks like pus, increased redness or pain at the surgical site, or any vomiting. 7. Report any pain in the calves, shortness of breath, or rapid heartbeat. 8. Follow-up in the office as directed. 9. If you were prescribed antibiotics, do not stop them without talking to your provider. Daily MICHELLE Drain Care: 1. Remove dressings. Shower with antibacterial soap. 2. Do not let the MICHELLE drain dangle from your body. Use the safety pin to secure to your clothing. Secure the MICHELLE to a lanyard or other type of long necklace when you shower. 3. Replace drain gauze and taped to secure. 4. Record the output from your MICHELLE bulb (at least once daily) on the form provided and bring this with you to your follow-up appointment. 5. Keep the MICHELLE drain to suction (squeeze the bulb and replace the cap while squeezing). 6. Strip the lines twice daily (hold onto the line as close to the body as you can, then with the other hand push the contents of the line into the MICHELLE bulb). Referrals: Sonia Bradley MD [Primary Care Provider] - Gia Castañeda CNP [Advanced Practice Nurse] - 03/18/19 2:30 pm <Abdias Menendez - Last Filed: 03/12/19 12:34> Date of Encounter: 03/12/19 - Assessment and Plan (1) Cholelithiasis and acute cholecystitis without obstruction Current Visit: Yes Status: Acute Objective Vital Signs - Last 8 Hours Temp Pulse Resp BP Pulse Ox 03/12/19 11:02 98.2 F 96 16 130/88 90 03/12/19 08:41 91 03/12/19 07:06 98.5 F 93 18 108/80 91 Intake and Output 03/11/19 03/12/19 03/12/19 23:59 07:59 15:59 Intake Total 200 / 5400 920 / 920 Output Total 340 / 1340 350 / 940 590 / 940 Balance -140 / 4060 570 / -20 -590 / -20 Intake: IV Fluids 200 / 5400 800 / 800 KCl 20 mEq in 0.9% Sodium 500 / 500 Chloride 20 meq In 1,000 ml @ 100 mls/hr IVC .Q10H [facility] Rx#: [id number] Ofirmev 1,000 mg/100 ml 1,000 100 / 100 200 / 200 mg In 100 ml @ 400 mls/hr IVPB Q6HR [facility] Rx#:[id number] Zosyn 3.375 GM In 0.9 % Sodium 100 / 100 100 / 100 Chloride (Mini-Bag +) 100 ML @ 25 mls/hr IVPB Q8H [facility] Rx#: [id number] Oral 120 / 120 Output: Urine 300 / 850 550 / 850 Estimated Blood Loss 150 / 150 Wound Drainage 190 / 190 50 / 90 40 / 90 LRQ 190 / 190 50 / 90 40 / 90 - Labs 03/12/19 01:51 03/12/19 01:51 Diabetes panel 03/12/19 Range/Units 01:51 Sodium 135 L (136-145) mEq/L Potassium 3.8 (3.5-5.1) mEq/L Chloride 99 (98-107) mEq/L Carbon Dioxide 28 (23-29) mEq/L BUN 16 (6-20) mg/dL Creatinine 1.12 (0.70-1.30) mg/dL Glucose 127 H (70-105) mg/dL Calcium 8.9 (8.6-10.3) mg/dL Calcium panel 03/12/19 Range/Units 01:51 Calcium 8.9 (8.6-10.3) mg/dL Pituitary panel 03/12/19 Range/Units 01:51 Sodium 135 L (136-145) mEq/L Potassium 3.8 (3.5-5.1) mEq/L Chloride 99 (98-107) mEq/L Carbon Dioxide 28 (23-29) mEq/L BUN 16 (6-20) mg/dL Creatinine 1.12 (0.70-1.30) mg/dL Glucose 127 H (70-105) mg/dL Calcium 8.9 (8.6-10.3) mg/dL Adrenal panel 03/12/19 Range/Units 01:51 Sodium 135 L (136-145) mEq/L Potassium 3.8 (3.5-5.1) mEq/L Chloride 99 (98-107) mEq/L Carbon Dioxide 28 (23-29) mEq/L BUN 16 (6-20) mg/dL Creatinine 1.12 (0.70-1.30) mg/dL Glucose 127 H (70-105) mg/dL Calcium 8.9 (8.6-10.3) mg/dL - Attending Attestation I have personally performed a face to face evaluation on this patient. I have reviewed and agree with the care plan. History and Exam by me shows: The patient is seen and evaluated on morning rounds. Serosanguineous drainage and Girish-Manzo tubes. Preoperative pain syndrome is gone. Pain control is excellent. Continue postoperative care for open cholecystectomy Abdias Menendez MD FACS
[2019-03-13] MEDS: Piperacillin/Tazobactam 3.375 GM in 0.9 % Sodium Chloride Mini Bag 100 ML IVPB SCH ×3 (03:06→22:17)
[2019-03-13 04:55] LABS: Hematocrit 43.1 % (37.5-50.1); Hemoglobin 13.7 g/dL (12.9-16.9); Mean Corpuscular HGB Conc 31.8 g/dL (31.6-35.5); Mean Corpuscular Hemoglobin 28.1 pg (28.0-33.3); Mean Corpuscular Volume 88.3 fL (83.0-100.0); Platelet Count 316 K/mcL (140-400); Red Blood Count 4.88 M/mcL (4.19-5.50); Red Cell Distribution Width 14.8 % (11.5-14.5); White Blood Count 11.7 K/mcL (4.3-11.1)
[2019-03-13 05:16] LABS: Alanine Aminotransferase 27 Units/L (7-52); Albumin 3.3 g/dL (3.5-5.7); Alkaline Phosphatase 77 Units/L (34-104); Aspartate Amino Transferase 26 Units/L (13-39); BUN/Creatinine Ratio 20 (6-26); Bilirubin,Direct 0.2 mg/dL (0.0-0.2); Bilirubin,Indirect 0.4 mg/dL (0.0-1.2); Bilirubin,Total 0.6 mg/dL (0.3-1.0); Blood Urea Nitrogen 17 mg/dL (6-20); Calcium 8.9 mg/dL (8.6-10.3); Carbon Dioxide 26 mEq/L (23-29); Chloride 98 mEq/L (98-107); Globulin 3.3 g/dL (2.4-3.5); Glucose 100 mg/dL (70-105); Magnesium 1.9 mg/dL (1.6-2.6); Osmolality,Calculated 278 (280-300); Potassium 3.5 mEq/L (3.5-5.1); Sodium 133 mEq/L (136-145); Total Protein 6.6 g/dL (6.4-8.9); eGFR For African Americans > 60 (> 60); eGFR For Non-African Americans > 60 (> 60)
[2019-03-13] MEDS: *HR* Heparin 5,000 UNIT/ML VIAL SQ SCH ×3 (05:49→22:19)
[2019-03-13] MEDS: BuPROPion XL (24 HR) 150 MG TABLET PO SCH (08:31)
[2019-03-13] MEDS: Aspirin Enteric Coated 81 MG Tablet PO SCH (08:32)
--- NOTE | 2019-03-13 08:50 | AcuteCareSurgery Progress Note ---
Date of Encounter: 03/13/19 Time of Encounter: 08:48 - Assessment and Plan (1) Cholecystitis Current Visit: Yes Status: Acute 58M POD #2 s/p lap conv to open babatunde 2/2 necrotic/perforated gallbladder/cholecystitis; pain improved; tolerating diet; drains are serosanguinous; diet as tolerated pain regimen as is OOBTC, ambulate cont with IV abx x 24 hrs will follow up in Am Subjective Patient reports: no new complaints, feels better, still having pain, pain is less, afebrile Objective Vital Signs - Last 8 Hours Temp Pulse Resp BP Pulse Ox 03/13/19 06:43 98.1 F 90 14 111/83 92 03/13/19 04:35 97.9 F 96 18 117/79 94 Intake and Output 03/12/19 03/13/19 03/13/19 23:59 07:59 15:59 Intake Total 100 / 1220 Output Total 27 / 1317 5 / 5 Balance 73 / -97 -5 / -5 Intake: IV Fluids 100 / 1100 Zosyn 3.375 GM In 0.9 % Sodium 100 / 300 Chloride (Mini-Bag +) 100 ML @ 25 mls/hr IVPB Q8H [facility] Rx#: [id number] Output: Wound Drainage 5 LRQ Other: Weight 130.4 kg Patient Weight 03/13/19 23:59 Weight 130.4 kg - General physical appearance no distress - Respiratory normal expansion, normal respiratory effort - Cardiovascular Cardiovascular exam: Present: RRR - Abdomen Abdomen: Present: soft, tender (appropriately tender; ) - Incision Incision: Present: clean and dry, intact - Neurologic CN 2-12 grossly intact - Psychiatric oriented to time, oriented to person, oriented to place - Labs 03/13/19 04:09 03/13/19 04:09 Diabetes panel 03/13/19 Range/Units 04:09 Sodium 133 L (136-145) mEq/L Potassium 3.5 (3.5-5.1) mEq/L Chloride 98 (98-107) mEq/L Carbon Dioxide 26 (23-29) mEq/L BUN 17 (6-20) mg/dL Creatinine 0.83 (0.70-1.30) mg/dL Glucose 100 (70-105) mg/dL Calcium 8.9 (8.6-10.3) mg/dL AST 26 (13-39) Units/L ALT 27 (7-52) Units/L Alkaline Phosphatase 77 (34-104) Units/L Albumin 3.3 L (3.5-5.7) g/dL Calcium panel 03/13/19 Range/Units 04:09 Calcium 8.9 (8.6-10.3) mg/dL Albumin 3.3 L (3.5-5.7) g/dL Pituitary panel 03/13/19 Range/Units 04:09 Sodium 133 L (136-145) mEq/L Potassium 3.5 (3.5-5.1) mEq/L Chloride 98 (98-107) mEq/L Carbon Dioxide 26 (23-29) mEq/L BUN 17 (6-20) mg/dL Creatinine 0.83 (0.70-1.30) mg/dL Glucose 100 (70-105) mg/dL Calcium 8.9 (8.6-10.3) mg/dL Adrenal panel 03/13/19 Range/Units 04:09 Sodium 133 L (136-145) mEq/L Potassium 3.5 (3.5-5.1) mEq/L Chloride 98 (98-107) mEq/L Carbon Dioxide 26 (23-29) mEq/L BUN 17 (6-20) mg/dL Creatinine 0.83 (0.70-1.30) mg/dL Glucose 100 (70-105) mg/dL Calcium 8.9 (8.6-10.3) mg/dL Total Bilirubin 0.6 (0.3-1.0) mg/dL AST 26 (13-39) Units/L ALT 27 (7-52) Units/L Alkaline Phosphatase 77 (34-104) Units/L Albumin 3.3 L (3.5-5.7) g/dL Consult Discharge Plan - Plan Instructions: Girish-Manzo Drain Care (DC), Open Cholecystectomy (DC) Additional Instructions: General Surgical Discharge Instructions 1. No pushing, pulling, or lifting greater than 15 lbs for 6 weeks. 2. You may remove your dressings and shower beginning 03/13/2019, but no tub baths, soaking, or swimming for 2 weeks. 3. No driving for two weeks unless otherwise specified and then you may resume driving when you are off narcotics and are safe to react in a car. 4. Take ibuprofen every 8 hours for discomfort. If this does not relieve discomfort, you may take your chronic Percocet. Eat a small snack with pain medication as this will help reduce the risk of nausea. Take narcotics as directed. Do not take more narcotics then directed and do not share your narc otics with any other person. Do not drink alcohol while on narcotics. You can take the Zofran/ondansetron if needed for nausea or with a dose of narcotics to prevent nausea. 5. Take stool softeners (Colace) or a water based laxative (Miralax) while taking narcotics. You may hold for loose stools. 6. Report any fevers greater than 100.5F, increase abdominal discomfort, drainage that looks like pus, increased redness or pain at the surgical site, or any vomiting. 7. Report any pain in the calves, shortness of breath, or rapid heartbeat. 8. Follow-up in the office as directed. 9. If you were prescribed antibiotics, do not stop them without talking to your provider. Daily MICHELLE Drain Care: 1. Remove dressings. Shower with antibacterial soap. 2. Do not let the MICHELLE drain dangle from your body. Use the safety pin to secure to your clothing. Secure the MIHCELLE to a lanyard or other type of long necklace when you shower. 3. Replace drain gauze and taped to secure. 4. Record the output from your MICHELLE bulb (at least once daily) on the form provided and bring this with you to your follow-up appointment. 5. Keep the MICHELLE drain to suction (squeeze the bulb and replace the cap while squeezing). 6. Strip the lines twice daily (hold onto the line as close to the body as you can, then with the other hand push the contents of the line into the MICHELLE bulb). Referrals: Sonia Bradley MD [Primary Care Provider] - Gia Castañeda CNP [Advanced Practice Nurse] - 03/18/19 2:30 pm
--- NOTE | 2019-03-13 09:32 | Internal Med Progress Note ---
Hospitalist Progress Note - Encounter Date of Encounter: 03/13/19 Time of Encounter: 10:00 - Subjective Interval History: No acute events overnight - Exam Vitals: Temp Pulse Resp BP Pulse Ox 98.1 F 90 14 111/83 92 03/13/19 06:43 03/13/19 06:43 03/13/19 06:43 03/13/19 06:43 03/13/19 06:43 Exam: General: NAD, good eye contact, well appearing, obese Thoracic: end-expiratory wheezes diffusely Cardio: Normal S1 and S2, regular rate and rhythm Abdomen: Soft, nontender, nondistended, bandages from open surgery c/d/i Extremities: Warm, well perfused. DP pulses 2+ b/l. No edema. Skin: Intact. No rashes, bruises, or ulcers Neuro: Awake, fully oriented. Speech fluent - Assessment and Plan (1) Sepsis Current Visit: Yes Status: Acute Assessment and Plan: Likely secondary to acute cholecystitis. S/p cholecystectomy Continue zosyn (2) Cholecystitis Current Visit: Yes Status: Acute Assessment and Plan: s/p cholecystectomy for necrotic/ perforated gall bladder Tolerated procedure well with no acute complications Continue IV antibiotics with zosyn (3) DVT prophylaxis Current Visit: Yes Status: Acute Assessment and Plan: 1. Heparin SQ. - Time Spent with Patient Total time spent is greater than 50% in coordination of care (as documented) at patient's floor/unit and/or counseling patient: Internal Medicine: Result - Labs CBC & Chem 7: 03/13/19 04:09 03/13/19 04:09 Labs: Short CBC 03/13/19 Range/Units 04:09 WBC 11.7 H (4.3-11.1) K/mcL Hgb 13.7 (12.9-16.9) g/dL Hct 43.1 (37.5-50.1) % Plt Count 316 (140-400) K/mcL BMP 03/13/19 04:09 Sodium 133 L Potassium 3.5 Chloride 98 Carbon Dioxide 26 BUN 17 Creatinine 0.83 Glucose 100 Calcium 8.9 Liver Function 03/13/19 Range/Units 04:09 Total Bilirubin 0.6 (0.3-1.0) mg/dL Direct Bilirubin 0.2 (0.0-0.2) mg/dL AST 26 (13-39) Units/L ALT 27 (7-52) Units/L Alkaline Phosphatase 77 (34-104) Units/L Albumin 3.3 L (3.5-5.7) g/dL - ABG Interpretation ABG results: PT/INR, D-dimer PT 15.9 Seconds (9.4-12.1) H 03/11/19 02:54 Consult Discharge Plan - Plan Instructions: Girish-Manzo Drain Care (DC), Open Cholecystectomy (DC) Additional Instructions: General Surgical Discharge Instructions 1. No pushing, pulling, or lifting greater than 15 lbs for 6 weeks. 2. You may remove your dressings and shower beginning 03/13/2019, but no tub baths, soaking, or swimming for 2 weeks. 3. No driving for two weeks unless otherwise specified and then you may resume driving when you are off narcotics and are safe to react in a car. 4. Take ibuprofen every 8 hours for discomfort. If this does not relieve discomfort, you may take your chronic Percocet. Eat a small snack with pain medication as this will help reduce the risk of nausea. Take narcotics as directed. Do not take more narcotics then directed and do not share your narcotics with any other person. Do not drink alcohol while on narcotics. You can take the Zofran/ondansetron if needed for nausea or with a dose of narcotics to prevent nausea. 5. Take stool softeners (Colace) or a water based laxative (Miralax) while taking narcotics. You may hold for loose stools. 6. Report any fevers greater than 100.5F, increase abdominal discomfort, drainage that looks like pus, increased redness or pain at the surgical site, or any vomiting. 7. Report any pain in the calves, shortness of breath, or rapid heartbeat. 8. Follow-up in the office as directed. 9. If you were prescribed antibiotics, do not stop them without talking to your provider. Daily MICHELLE Drain Care: 1. Remove dressings. Shower with antibacterial soap. 2. Do not let the MICHELLE drain dangle from your body. Use the safety pin to secure to your clothing. Secure the MICHELLE to a lanyard or other type of long necklace when you shower. 3. Replace drain gauze and taped to secure. 4. Record the output from your MICHELLE bulb (at least once daily) on the form provided and bring this with you to your follow-up appointment. 5. Keep the MICHELLE drain to suction (squeeze the bulb and replace the cap while squeezing). 6. Strip the lines twice daily (hold onto the line as close to the body as you can, then with the other hand push the contents of the line into the MICHELLE bulb). Referrals: Sonia Bradley MD [Primary Care Provider] - Gia Castañeda CNP [Advanced Practice Nurse] - 03/18/19 2:30 pm (1) Sepsis Qualifiers: Sepsis type: sepsis due to unspecified organism Qualified Code(s): A41.9 - Sepsis, unspecified organism
[2019-03-13] MEDS: Tiotropium 18 MCG inhalation IH SCH (10:16)
[2019-03-14] MEDS: Piperacillin/Tazobactam 3.375 GM in 0.9 % Sodium Chloride Mini Bag 100 ML IVPB SCH (03:49)
[2019-03-14] MEDS: *HR* Heparin 5,000 UNIT/ML VIAL SQ SCH (05:47)
[2019-03-14 07:07] VITALS: BP 117/83
[2019-03-14] MEDS: Tiotropium 18 MCG inhalation IH SCH (07:22)
[2019-03-14] MEDS: Aspirin Enteric Coated 81 MG Tablet PO SCH (08:06)
[2019-03-14] MEDS: BuPROPion XL (24 HR) 150 MG TABLET PO SCH (08:07)
--- NOTE | 2019-03-14 08:41 | AcuteCareSurgery Progress Note ---
<GarryGia Leslie - Last Filed: 03/14/19 08:37> Date of Encounter: 03/14/19 Time of Encounter: 08:37 - Assessment and Plan (1) Cholecystitis Current Visit: Yes Status: Acute Date of procedure: 03/11/19 Pre-op diagnosis: Acute cholecystitis and cholelithiasis Post-op diagnosis: other (necrotic and perforated gallbladder) Procedure: #1 attempted laparoscopic cholecystectomy. #2 open cholecystectomy Anesthesia: GETA Surgeon: Abdias Menendez POD #3 as above. Pathology remains pending at this time. He is located discharge from a surgical perspective. His MICHELLE drain can be removed prior to discharge. D/c instructions and f/u placed. Subjective Patient reports: no new complaints, pain is less, tolerating a regular diet, voiding w/o difficulty, flatus, bowel movement, afebrile Objective Vital Signs - Last 8 Hours Temp Pulse Resp BP Pulse Ox 03/14/19 07:23 18 99 03/14/19 07:02 98.1 F 90 18 117/83 99 03/14/19 04:11 98.2 F 80 17 115/77 93 Intake and Output 03/13/19 03/14/19 03/14/19 23:59 07:59 15:59 Intake Total 200 / 760 200 / 200 Output Total 20 / 25 750 / 750 Balance 180 / 735 -550 / -550 Intake: IV Fluids 100 / 100 Zosyn 3.375 GM In 0.9 % Sodium 100 / 100 Chloride (Mini-Bag +) 100 ML @ 25 mls/hr IVPB Q8H [facility] Rx#: [id number] Oral 200 / 560 100 / 100 Output: Urine 750 / 750 Wound Drainage 20 / 25 0 / 0 LRQ 20 / 25 0 / 0 Other: # Voids 2 Weight 129.4 kg Patient Weight 03/14/19 23:59 Weight 129.4 kg - General physical appearance well nourished, no distress, no pain - ENT atraumatic, normocephalic - Neck Neck exam: trachea midline - Respiratory normal expansion, normal respiratory effort - Cardiovascular Cardiovascular exam: Present: RRR - Abdomen Abdomen: Present: bowel sounds present, soft, non tender, wound (MICHELLE drain site unremarkable and is with serous fluid) - Incision Incision: Present: clean and dry, intact - Integumentary no rash - Neurologic normal sensation - Musculoskeletal normal posture - Psychiatric oriented to time, oriented to person, oriented to place - Labs 03/13/19 04:09 03/13/19 04:09 Consult Discharge Plan - Plan Instructions: Open Cholecystectomy (DC) Additional Instructions: General Surgical Discharge Instructions 1. No pushing, pulling, or lifting greater than 15 lbs for 6 weeks. 2. You may remove your dressings and shower beginning 03/13/2019, but no tub ba ths, soaking, or swimming for 2 weeks. 3. No driving for two weeks unless otherwise specified and then you may resume driving when you are off narcotics and are safe to react in a car. 4. Take ibuprofen every 8 hours for discomfort. If this does not relieve discomfort, you may take your chronic Percocet. Eat a small snack with pain medication as this will help reduce the risk of nausea. Take narcotics as directed. Do not take more narcotics then directed and do not share your narcotics with any other person. Do not drink alcohol while on narcotics. You can take the Zofran/ondansetron if needed for nausea or with a dose of narcotics to prevent nausea. 5. Take stool softeners (Colace) or a water based laxative (Miralax) while taking narcotics. You may hold for loose stools. 6. Report any fevers greater than 100.5F, increase abdominal discomfort, drainage that looks like pus, increased redness or pain at the surgical site, or any vomiting. 7. Report any pain in the calves, shortness of breath, or rapid heartbeat. 8. Follow-up in the office as directed. 9. If you were prescribed antibiotics, do not stop them without talking to your provider. Referrals: Sonia Bradley MD [Primary Care Provider] - Gia Castañeda CNP [Advanced Practice Nurse] - 03/25/19 2:15 pm Prescriptions: Amoxicillin/Clavulanate [Augmentin] 875 mg PO BIDWM 7 Days #14 tablet Docusate Sodium [Colace] 100 mg PO BID PRN #30 capsule PRN Reason: Contstipation Ibuprofen 800 mg PO Q8H PRN #30 tablet PRN Reason: Postsurgical pain OxyCODONE/APAP 5/325 [Percocet 5/325 MG] 1 each PO Q6HR PRN 7 Days #28 tablet PRN Reason: Pain Ondansetron ODT [Zofran ODT] 4 mg SL Q4HR PRN #15 tab.rapdis PRN Reason: Postsurgical nausea <Abdias Menendez - Last Filed: 03/14/19 12:50> Date of Encounter: 03/14/19 - Assessment and Plan (1) Cholelithiasis and acute cholecystitis without obstruction Current Visit: Yes Status: Acute Objective Vital Signs - Last 8 Hours Temp Pulse Resp BP Pulse Ox 03/14/19 08:00 99 03/14/19 07:23 18 99 03/14/19 07:02 98.1 F 90 18 117/83 99 Intake and Output 03/13/19 03/14/19 03/14/19 23:59 07:59 15:59 Intake Total 200 / 760 200 / 200 Output Total 20 / 25 750 / 750 0 / 750 Balance 180 / 735 -550 / -550 0 / -550 Intake: IV Fluids 100 / 100 Zosyn 3.375 GM In 0.9 % Sodium 100 / 100 Chloride (Mini-Bag +) 100 ML @ 25 mls/hr IVPB Q8H [facility] Rx#: [id number] Oral 200 / 560 100 / 100 Output: Urine 750 / 750 Wound Drainage 20 / 25 0 / 0 0 / 0 LRQ 20 / 25 0 / 0 0 / 0 Other: # Voids 2 Weight 129.4 kg Patient Weight 03/14/19 23:59 Weight 129.4 kg - Labs 03/13/19 04:09 03/13/19 04:09 - Attending Attestation I have personally performed a face to face evaluation on this patient. I have reviewed and agree with the care plan. History and Exam by me shows: The patient is seen and evaluated on morning rounds with the acute care surgery team. His incision is healing normally. Girish-Manzo drain is serosanguineous. The Girish-Manzo drain can be removed. The patient is ready for discharge. He will receive a course of home antibiotics. Return to clinic acute care surgery in several weeks Abdias Menendez MD FACS
--- NOTE | 2019-03-14 08:52 | Discharge Summary ---
Date of Encounter: 03/14/19 Time of Encounter: 08:00 - Discharge Diagnosis (1) Sepsis Priority: Primary Status: Acute Assessment and Plan: 58 year old male who presents to the ER tonight with right upper quadrant abdominal pain, fevers, chills, nausea, and vomiting. Symptoms are identical to those of yesterday when he presented to ER with same symptoms. Ultrasound was performed yesterday which revealed minimal common bile duct dilatation and gallbladder sludge. He was sent home with proper follow-up. He returned tonight with worsening symptoms. CT scan was performed which was concerning for cholecystitis. Dr. Barrera was consulted from the ER and will see patient and likely proceed with surgery. However, he recommended GI consult for possible ERCP. Patient was then admitted to hospitalist service. He was assessed with sepsis likely secondary to acute cholecystitis. He was seen by surgery and underwent a cholecystectomy for a necrotic gall bladder. He tolerated procedure well with no complications. He was stable and tolerating a diet at the time of discharge. He was discharged on a course of augmentin. 35 minutes was spent discharging this patient Qualifiers: Sepsis type: sepsis due to unspecified organism Qualified Code(s): A41.9 - Sepsis, unspecified organism (2) Cholecystitis Priority: Primary Status: Acute (3) DVT prophylaxis Priority: Primary Status: Acute Hospital course: Mr. Agarwal is a 58 year old male - Time Spent with Patient Total time spent providing and/or coordinating discharge services: - Discharge Medications Prescriptions: New Amoxicillin/Clavulanate [Augmentin] 875 mg PO BIDWM 7 Days #14 tablet Docusate Sodium [Colace] 100 mg PO BID PRN #30 capsule PRN Reason: Contstipation Ibuprofen 800 mg PO Q8H PRN #30 tablet PRN Reason: Postsurgical pain OxyCODONE/APAP 5/325 [Percocet 5/325 MG] 1 each PO Q6HR PRN 7 Days #28 tablet PRN Reason: Pain Ondansetron ODT [Zofran ODT] 4 mg SL Q4HR PRN #15 tab.rapdis PRN Reason: Postsurgical nausea Continued Metoprolol [Lopressor] 12.5 mg PO BID Nitroglycerin [Nitrostat] 0.4 mg SL PRN PRN PRN Reason: Chest Pain Albuterol Neb [AccuNeb] 1.25 mg PO Q8H PRN PRN Reason: Shortness Of Breath hydroCHLOROthiazide [Hydrochlorothiazide] 25 mg PO DAILY Montelukast [Singulair] 10 mg PO HS Pantoprazole Sodium [Protonix] 40 mg PO DAILY Umeclidinium [place] [Incruse Ellipta] 62.5 mcg IH DAILY Albuterol Sulfate [Ventolin Hfa] 2 puff PO Q4H PRN PRN Reason: Dyspnea OxyCODONE/APAP 5/325 [Percocet 5/325 MG] 1 each PO Q6HR PRN 2 Days #8 tablet PRN Reason: Pain Ondansetron ODT [Zofran ODT] 4 mg SL Q6HR PRN #10 tab.rapdis PRN Reason: Nausea Aspirin [Lo-Dose Aspirin EC] 81 mg PO DAILY Bupropion HCl [Wellbutrin Xl] 300 mg PO DAILY Lisinopril [Zestril] 10 mg PO DAILY Umeclidinium Brm/Vilanterol Tr [Anoro Ellipta 62.5-25 Mcg INH] 1 puff PO DAILY Home Medications: Metoprolol [Lopressor] 12.5 mg PO BID 10/26/15 [History] Nitroglycerin [Nitrostat] 0.4 mg SL PRN PRN 10/26/15 [History] Albuterol Neb [AccuNeb] 1.25 mg PO Q8H PRN 12/29/15 [History] Albuterol Sulfate [Ventolin Hfa] 2 puff PO Q4H PRN 01/23/18 [History] Montelukast [Singulair] 10 mg PO HS 01/23/18 [History] Pantoprazole Sodium [Protonix] 40 mg PO DAILY 01/23/18 [History] Umeclidinium [place] [Incruse Ellipta] 62.5 mcg IH DAILY 01/23/18 [History] hydroCHLOROthiazide [Hydrochlorothiazide] 25 mg PO DAILY 01/23/18 [History] Ondansetron ODT [Zofran ODT] 4 mg SL Q6HR PRN #10 tab.rapdis 03/09/19 [Rx] OxyCODONE/APAP 5/325 [Percocet 5/325 MG] 1 each PO Q6HR PRN 2 Days #8 tablet 03/09/19 [Rx] Aspirin [Lo-Dose Aspirin EC] 81 mg PO DAILY 03/11/19 [History] Bupropion HCl [Wellbutrin Xl] 300 mg PO DAILY 03/11/19 [History] Lisinopril [Zestril] 10 mg PO DAILY 03/11/19 [History] Umeclidinium Brm/Vilanterol Tr [Anoro Ellipta 62.5-25 Mcg INH] 1 puff PO DAILY 03/11/19 [History] Amoxicillin/Clavulanate [Augmentin] 875 mg PO BIDWM 7 Days #14 tablet 03/14/19 [Rx] Docusate Sodium [Colace] 100 mg PO BID PRN #30 capsule 03/14/19 [Rx] Ibuprofen 800 mg PO Q8H PRN #30 tablet 03/14/19 [Rx] Ondansetron ODT [Zofran ODT] 4 mg SL Q4HR PRN #15 tab.rapdis 03/14/19 [Rx] OxyCODONE/APAP 5/325 [Percocet 5/325 MG] 1 each PO Q6HR PRN 7 Days #28 tablet [Rx] Allergies/Adverse Reactions: Allergy/AdvReac Type Severity Reaction Status Date / Time No Known Allergies Allergy Verified 03/11/19 12:19 Date of admission: 03/11/19 01:15 Primary care physician: Sonia Bradley MD Consults: 03/10/19 22:47 Consult to Surgery [CONS] Stat Consulting Provider: Haroon Barrera Reason for Consult: cholecystitis Time Notified: 22:48 Call Completed: Yes 03/11/19 01:14 Consult to Physician [CONS] Routine Consulting Provider: Darrion Carrasquillo Reason for Consult: cholelithiasis; CBD dilatation Call Completed: Yes 03/12/19 10:46 Consult to [employer] [CONS] Routine Reason for SW Consult: [facility] for MICHELLE - Constitutional Vitals: Temp Pulse Resp BP Pulse Ox 98.1 F 90 18 117/83 99 03/14/19 07:02 03/14/19 07:02 03/14/19 07:23 03/14/19 07:02 03/14/19 07:23 General appearance: Present: cooperative, mild distress, A&O X 3, pleasant, answers questions appropriately Exam: General: NAD, good eye contact, well appearing, obese resp. CTAB Cardio: Normal S1 and S2, regular rate and rhythm Abdomen: Soft, nontender, nondistended, bandages from open surgery c/d/i Extremities: Warm, well perfused. DP pulses 2+ b/l. No edema. Skin: Intact. No rashes, bruises, or ulcers Neuro: Awake, fully oriented. Speech fluent - Patient Status Disposition: Home, Self-Care Condition: Good - Discharge Instructions Instructions: Open Cholecystectomy (DC) Follow Up With: Sonia Bradley MD [Primary Care Provider] - Gia Castañeda CNP [Advanced Practice Nurse] - 03/25/19 2:15 pm Additional Instructions: General Surgical Discharge Instructions 1. No pushing, pulling, or lifting greater than 15 lbs for 6 weeks. 2. You may remove your dressings and shower beginning 03/13/2019, but no tub baths, soaking, or swimming for 2 weeks. 3. No driving for two weeks unless otherwise specified and then you may resume driving when you are off narcotics and are safe to react in a car. 4. Take ibuprofen every 8 hours for discomfort. If this does not relieve discomfort, you may take your chronic Percocet. Eat a small snack with pain medication as this will help reduce the risk of nausea. Take narcotics as directed. Do not take more narcotics then directed and do not share your narcotics with any other person. Do not drink alcohol while on narcotics. You can take the Zofran/ondansetron if needed for nausea or with a dose of narcotics to prevent nausea. 5. Take stool softeners (Colace) or a water based laxative (Miralax) while taking narcotics. You may hold for loose stools. 6. Report any fevers greater than 100.5F, increase abdominal discomfort, drainage that looks like pus, increased redness or pain at the surgical site, or any vomiting. 7. Report any pain in the calves, shortness of breath, or rapid heartbeat. 8. Follow-up in the office as directed. 9. If you were prescribed antibiotics, do not stop them without talking to your provider.
== END 2019-03-14 13:29 | disposition home or self-care (01) | DRG 710 ==
LOC: EMEROOARM 20:08 → 3ANU 20:08 → SUATTDRO 03-11 01:15 → 3ANU 03-11 15:36
PROVIDERS: ADMIT Pediatrics; ATTEND Internal Medicine